=== PATIENT | female | born 1930 | race Caucasian/White ===

== ENCOUNTER 2016-11-24 17:20 | Emergency (ER) | payer MEDICARE ==
--- NOTE | 2016-11-24 17:41 | ER Document Report ---
ED General - General Chief Complaint: Fall Stated Complaint: FALL Time Seen by Provider: 11/24/16 17:29 Mode of Arrival: Medic Information source: Patient, Emergency Med Personnel Notes: 86-year-old female presents from care facility where she was ambulating with no difficulty and then her legs started to shake and she is gradually fell to the ground. Care workers were standing right next to her and were able to grab her before she fell. Patient did not strike herself. There is concerns of weakness by care facility but this was not noted by EMS upon their arrival Patient herself denies any other concerns at all TRAVEL OUTSIDE OF THE [place] IN LAST 30 DAYS: No - HPI Onset: Just prior to arrival Onset/Duration: Sudden Quality of pain: No pain Severity: Mild Pain Level: Denies Associated symptoms: Weakness Exacerbated by: Denies Relieved by: Denies Similar symptoms previously: No Recently seen / treated by doctor: No - Related Data Allergies/Adverse Reactions: Penicillins Allergy (Verified 05/31/14 13:55) Past Medical History - Social History Smoking Status: Never Smoker Cigarette use (# per day): No Chew tobacco use (# tins/day): No Smoking Education Provided: No Family History: Reviewed & Not Pertinent, Other - Unable - Past Medical History Cardiac Medical History: Reports: Hx Hypercholesterolemia - Immunizations Hx Diphtheria, Pertussis, Tetanus Vaccination: Yes Review of Systems - Review of Systems Notes: REVIEW OF SYSTEMS: CONSTITUTIONAL : Denies fever, chills, or sweats. Denies recent illness. EENT: Denies eye, ear, throat, or mouth pain or symptoms. Denies nasal or sinus congestion or discharge. Denies throat, tongue, or mouth swelling or difficulty swallowing. CARDIOVASCULAR: Denies chest pain. Denies palpitations or racing or irregular heart beat. Denies ankle edema. RESPIRATORY: Denies cough, cold, or chest congestion. Denies shortness of breath, difficulty breathing, or wheezing. GASTROINTESTINAL: Denies abdominal pain or distention. Denies nausea, vomiting , or diarrhea. Denies blood in vomitus, stools, or per rectum. Denies black, tarry stools. Denies constipation. GENITOURINARY: Denies difficulty urinating, painful urination, burning, frequency, blood in urine, or discharge. FEMALE GENITOURINARY: Denies vaginal bleeding, heavy or abnormal periods, irregular periods. Denies vaginal discharge or odor. MUSCULOSKELETAL: Denies back or neck pain or stiffness. Denies joint pain or swelling. SKIN: Denies rash, lesions or sores. HEMATOLOGIC : Denies easy bruising or bleeding. LYMPHATIC: Denies swollen, enlarged glands. NEUROLOGICAL: Denies confusion or altered mental status. Denies passing out or loss of consciousness. Denies dizziness or lightheadedness. Denies headache. Denies weakness or paralysis or loss of use of either side. Denies problems with gait or speech. Denies sensory loss, numbness, or tingling. Denies seizures. PSYCHIATRIC: Denies anxiety or stress. Denies depression, suicidal ideation, or homicidal ideation. ALL OTHER SYSTEMS REVIEWED AND NEGATIVE. PHYSICAL EXAMINATION: GENERAL: Well-appearing, well-nourished and in no acute distress. HEAD: Atraumatic, normocephalic. EYES: Pupils equal round and reactive to light, extraocular movements intact, conjunctiva are normal. ENT: Nares patent, oropharynx clear without exudates. Moist mucous membranes. NECK: Normal range of motion, supple without lymphadenopathy LUNGS: Breath sounds clear to auscultation bilaterally and equal. No wheezes rales or rhonchi. HEART: Regular rate and rhythm without murmurs ABDOMEN: Soft, nontender, nondistended abdomen. No guarding, no rebound. No masses appreciated. Female : deferred Musculoskeletal: Normal range of motion, no pitting or edema. No cyanosis. NEUROLOGICAL: Cranial nerves grossly intact. Normal speech, normal gait. Normal sensory, motor exams mild right facial droop PSYCH: Normal mood, normal affect. SKIN: Warm, Dry, normal turgor, no rashes or lesions noted. Dictation was performed using [employer] voice recognition software Physical Exam - Vital signs Vitals: Temp Pulse Resp BP Pulse Ox 97.3 F 67 16 146/68 H 95 11/24/16 17:36 11/24/16 17:36 11/24/16 17:36 11/24/16 17:36 11/24/16 17:36 Course - Re-evaluation Re-evalutation: 11/24/16 17:43 I have very low suspicion for a stroke given patient's presentation. CT of the head has been ordered on the last 11/24/16 18:[address] is consistent with encephalomalacia which is stable. Patient otherwise looks well is in no distress I do not see any new onset neurological deficits, I will give the patient follow-up with neurology but otherwise at this point admission for a stroke or TIA does not appear appropriate as the patient has no symptoms and the facial droop can be chronic in nature After performing a Medical Screening Examination, I estimate there is LOW risk for INTRACRANIAL HEMORRHAGE, ISCHEMIC CVA, MALIGNANT DYSRHYTHMIA, ACUTE CORONARY SYNDROME, MENINGITIS, PULMONARY EMBOLISM, or SEPSIS thus I consider the discharge disposition reasonable. I have reevaluated this patient multiple times and no significant life threatening changes are noted. The patient and I have discussed the diagnosis and risks, and we agree with discharging home with close follow-up with the understanding that symptoms and presentations can change. We also discussed returning to the Emergency Department immediately if new or worsening symptoms occur. We have discussed the symptoms which are most concerning (e.g., changing or worsening pain, weakness, vomiting, fever) that necessitate immediate return. - Vital Signs Vital signs: Temp Pulse Resp BP Pulse Ox 97.3 F 67 16 146/68 H 95 11/24/16 17:36 11/24/16 17:36 11/24/16 17:36 11/24/16 17:36 11/24/16 17:36 - Diagnostic Test Radiology reviewed: Image reviewed, Reports reviewed - chronic changes Discharge - Discharge Clinical Impression: Weakness Condition: Stable Disposition: HOME, SELF-CARE Additional Instructions: Follow up with your physician tomorrow for further care or return to the ED IMMEDIATELY if symptoms worsen or new concerns occur. If you cannot afford to follow up with your primary care physician a list of low cost clinics have been provided at the end of your discharge papers as well. Referrals: MO RIVERO MD [ACTIVE STAFF] - Follow up tomorrow
--- NOTE | 2016-11-24 18:15 | RADIOLOGY REPORT (SQ) ---
EXAM DESCRIPTION: CT HEAD WITHOUT COMPLETED DATE/TIME: 11/24/2016 5:48 pm REASON FOR STUDY: right facial droop COMPARISON: 02/01/2013 TECHNIQUE: Axial images acquired through the brain without intravenous contrast. Images reviewed wi th bone, brain and subdural windows. Images stored on PACS. All CT scanners at this facility use dose modulation, iterative reconstruction, and/or weight based d osing when appropriate to reduce radiation dose to as low as reasonably achievable (ALARA). [facility]: Dose Right [facility]: CareDose [facility]: Dose Right [facility]: Teradose 4D [facility]: Smart [employer] RADIATION DOSE: Up-to-date CT equipment and radiation dose reduction techniques were employed. CTDIv ol: 64.6 mGy. DLP: 2430 mGy-cm. mGy. LIMITATIONS: None. FINDINGS: VENTRICLES: Prominent. CEREBRUM: No masses. No hemorrhage. No midline shift. Re- demonstration of large territory encepha lomalacia involving the left frontal and temporal lobes, not significantly changed in the study inter minal. Less pronounced findings involving the right frontal lobe. Background of periventricular hypoa ttenuation, consistent with chronic microvascular ischemic change. . No evidence for acute infarcti on. CEREBELLUM: No masses. No hemorrhage. No alteration of density. No evidence for acute infarction. EXTRAAXIAL SPACES: Mild age-related involutional change. No fluid collections. No masses. ORBITS AND GLOBE: No intra- or extraconal masses. Normal contour of globe without masses. CALVARIUM: No fracture. PARANASAL SINUSES: No fluid or mucosal thickening. SOFT TISSUES: No mass or hematoma. OTHER: No other significant finding. IMPRESSION: Stable multifocal encephalomalacia superimposed upon a background of chronic microvascul ar ischemic change. No evidence of acute infarct, mass, or hemorrhage. TECHNICAL DOCUMENTATION: JOB ID: [id number] Quality ID # [id number]: Final reports with documentation of one or more dose reduction techniques (e.g., Au tomated exposure control, adjustment of the mA and/or kV according to patient size, use of iterative reconstruction technique) 2010 [employer] [place]- All Rights Reserved
[2016-11-24] MEDS ORDERED: ASPIRIN 325 MG TABLET PO ONE (18:18)
[2016-11-24 19:46] VITALS: BP 112/79
== END 2016-11-24 19:45 | disposition home or self-care (01) ==
LOC: ER 17:20
DX: R53.1 Weakness (principal); W19.XXXA Unspecified fall, initial encounter
CPT/HCPCS: 70450; 99284

== ENCOUNTER 2017-01-13 21:30 | Emergency (ER) | payer MEDICARE ==
[2017-01-13] MEDS ORDERED: ACETAMINOPHEN 325 MG TABLET PO ONE (21:45)
--- NOTE | 2017-01-13 22:10 | ER Document Report ---
ED General - General Chief Complaint: Fall Injury Stated Complaint: FALL,HEAD INJURY Mode of Arrival: Medic Information source: Patient TRAVEL OUTSIDE OF THE [place] IN LAST 30 DAYS: No - HPI Patient complains to provider of: accidental fall Notes: Patient is 86-year-old white female with history of dementia comes from local [facility] with report that she was standing at the nurses station when she lost her footing and fell over striking her head. EMS found the patient to be alert and interactive. The patient has chronic dementia and does not know the year but does note that she is in the hospital and knows her name. Patient has no recollection of the event, but this is chronic. She initially denies any pain anywhere, later acknowledging that she is got headache and some neck pain. No chest pain or abdominal pain or difficulty breathing. No vomiting. - Related Data Allergies/Adverse Reactions: Penicillins Allergy (Verified 05/31/14 13:55) Past Medical History - General Information source: Patient, Emergency Med Personnel, Outside Facility Records Cannot obtain history due to: Dementia - Social History Smoking Status: Never Smoker Frequency of alcohol use: None Drug Abuse: None Lives with: [facility] Family History: Reviewed & Not Pertinent, Other - Unable - Past Medical History Cardiac Medical History: Reports: Hx Hypercholesterolemia Pulmonary Medical History: Reports: Hx COPD GI Medical History: Reports: Hx Gastroesophageal Reflux Disease - Immunizations Hx Diphtheria, Pertussis, Tetanus Vaccination: Yes Review of Systems - Review of Systems Notes: REVIEW OF SYSTEMS: CONSTITUTIONAL : Denies fever, chills, or sweats. Denies recent illness. EENT: Denies eye, ear, throat, or mouth pain or symptoms. Denies nasal or sinus congestion or discharge. Denies throat, tongue, or mouth swelling or difficulty swallowing. CARDIOVASCULAR: Denies chest pain. Denies palpitations or racing or irregular heart beat. Denies ankle edema. RESPIRATORY: Denies cough, cold, or chest congestion. Denies shortness of breath, difficulty breathing, or wheezing. GASTROINTESTINAL: Denies abdominal pain or distention. Denies nausea, vomiting , or diarrhea. Denies blood in vomitus, stools, or per rectum. Denies black, tarry stools. Denies constipation. GENITOURINARY: Denies difficulty urinating, painful urination, burning, frequency, blood in urine, or discharge. FEMALE GENITOURINARY: Denies vaginal bleeding, heavy or abnormal periods, irregular periods. Denies vaginal discharge or odor. MUSCULOSKELETAL: Denies back pain or stiffness. Denies joint pain or swelling. SKIN: Denies rash, lesions or sores. HEMATOLOGIC : Denies easy bruising or bleeding. LYMPHATIC: Denies swollen, enlarged glands. NEUROLOGICAL: Denies new confusion or altered mental status. Denies passing out or loss of consciousness. Denies dizziness or lightheadedness. Denies weakness or paralysis or loss of use of either side. Denies problems with gait or speech. Denies sensory loss, numbness, or tingling. Denies seizures. PSYCHIATRIC: Denies anxiety or stress. Denies depression, suicidal ideation, or homicidal ideation. ALL OTHER SYSTEMS REVIEWED AND NEGATIVE. Dictation was performed using [email or web address] voice recognition software Physical Exam - Vital signs Vitals: Temp Pulse Resp BP Pulse Ox 98.2 F 84 22 H 132/68 H 98 01/13/17 21:40 01/13/17 21:40 01/13/17 21:40 01/13/17 21:40 01/13/17 21:40 - Notes Notes: PHYSICAL EXAMINATION: GENERAL: Well-appearing, well-nourished and in no acute distress. HEAD: Right occipital contusion. No bony deformity or crepitance.. EYES: Pupils equal round and reactive to light, extraocular movements intact, conjunctiva are normal. ENT: Nares patent, oropharynx clear without exudates. Moist mucous membranes. NECK: Pain posteriorly along C3 and 4. No bony deformity or crepitance. Trachea is midline. LUNGS: Breath sounds clear to auscultation bilaterally and equal. No wheezes rales or rhonchi. HEART: Regular rate and rhythm without murmurs ABDOMEN: Soft, nontender, nondistended abdomen. No guarding, no rebound. No masses appreciated. Female : deferred Musculoskeletal: Normal range of motion, no pitting or edema. No cyanosis. NEUROLOGICAL: Cranial nerves grossly intact. Normal speech. Normal sensory, motor exams. Patient is alert to person and place this is chronic. Consistent with her previous history of dementia. PSYCH: Normal mood, normal affect. SKIN: Warm, Dry, normal turgor, no rashes or lesions noted. Course - Re-evaluation Re-evalutation: 01/13/17 22:14 Patient given Tylenol for pain. Blood sugar was 151. 01/13/17 22:15 01/13/17 23:37 CT scan of the head and neck were both negative. No evidence for acute intracranial process or fracture. Patient's dementia is unchanged and her neurologic exam shows no unilateral findings. There is no cardiac ectopy identified. No hypotension. No suggestion for syncope as an etiology. - Vital Signs Vital signs: Temp Pulse Resp BP Pulse Ox 98.2 F 84 22 H 132/68 H 98 01/13/17 21:40 01/13/17 21:40 01/13/17 21:40 01/13/17 21:40 01/13/17 21:40 - Laboratory Laboratory results interpreted by ut: 01/13/17 21:48 POC Glucose 151 H - EKG Interpretation by Nd EKG shows normal: Sinus rhythm Additional EKG results interpreted by ut: 01/13/17 22:15 EKG as interpreted by ut showed normal sinus rhythm heart rate of 70 with right bundle branch block. There is no gross evidence for acute MS or ischemia identified. There is no change from previous EKG reviewed from 10/01/14. Discharge - Discharge Clinical Impression: Accidental fall Qualifiers: Encounter type: initial encounter Qualified Code(s): W19.XXXA - Unspecified fall, initial encounter Head injury Qualifiers: Encounter type: initial encounter Qualified Code(s): S09.90XA - Unspecified injury of head, initial encounter Neck strain Qualifiers: Encounter type: initial encounter Qualified Code(s): S16.1XXA - Strain of muscle, fascia and tendon at neck level, initial encounter Dementia Qualifiers: Dementia type: Alzheimer's disease Alzheimer's disease onset: late-onset Dementia behavioral disturbance: without behavioral disturbance Qualified Code(s ): G30.1 - Alzheimer's disease with late onset; F02.80 - Dementia in other diseases classified elsewhere without behavioral disturbance Condition: Stable Disposition: HOME, SELF-CARE Instructions: Head Injury Precautions ([facility]), Neck Injury (Cervical Strain) ([facility] ) Additional Instructions: Take precautions to help prevent falls. Walk with assistance.
--- NOTE | 2017-01-13 22:34 | RADIOLOGY REPORT (SQ) ---
EXAM DESCRIPTION: CT HEAD WITHOUT COMPLETED DATE/TIME: 01/13/2017 10:18 pm REASON FOR STUDY: fall with head injury COMPARISON: 11/24/2016 TECHNIQUE: Axial images acquired through the brain without intravenous contrast. Images reviewed wi th bone, brain and subdural windows. Images stored on PACS. All CT scanners at this facility use dose modulation, iterative reconstruction, and/or weight based d osing when appropriate to reduce radiation dose to as low as reasonably achievable (ALARA). [facility]: Dose Right [facility]: CareDose [facility]: Dose Right [facility]: Teradose 4D [facility]: Smart [employer] RADIATION DOSE: Up-to-date CT equipment and radiation dose reduction techniques were employed. CTDIv ol: 49.0 mGy. DLP: 783 mGy-cm.mGy. LIMITATIONS: None. FINDINGS: VENTRICLES: Prominent. CEREBRUM: No masses. No hemorrhage. No midline shift. Areas of low density in the white matter due to chronic ischemic change. CEREBELLUM: No masses. No hemorrhage. No alteration of density. No evidence for acute infarction. EXTRAAXIAL SPACES: Age-related involutional change. No fluid collections. No masses. ORBITS AND GLOBE: No intra- or extraconal masses. Normal contour of globe without masses. CALVARIUM: No fracture. PARANASAL SINUSES: No fluid or mucosal thickening. SOFT TISSUES: No mass or hematoma. OTHER: No other significant finding. IMPRESSION: No hemorrhage. No midline shift. Areas of low density in the white matter due to chron ic ischemic change. EVIDENCE OF ACUTE STROKE: NO. TECHNICAL DOCUMENTATION: JOB ID: [id number] Quality ID # [id number]: Final reports with documentation of one or more dose reduction techniques (e.g., Au tomated exposure control, adjustment of the mA and/or kV according to patient size, use of iterative reconstruction technique) 2010 [employer]- All Rights Reserved
--- NOTE | 2017-01-13 22:53 | RADIOLOGY REPORT (SQ) ---
EXAM DESCRIPTION: CT CERVICAL SPINE WITHOUT COMPLETED DATE/TIME: 01/13/2017 10:37 pm REASON FOR STUDY: fall with neck injury COMPARISON: None. TECHNIQUE: Axial images acquired through the cervical spine without intravenous contrast. Images re viewed with lung, soft tissue and bone windows. Reconstructed coronal and sagittal MPR images review ed. Images stored on PACS. All CT scanners at this facility use dose modulation, iterative reconstruction, and/or weight based d osing when appropriate to reduce radiation dose to as low as reasonably achievable (ALARA). [facility]: Dose Right [facility]: CareDose [facility]: Dose Right [facility]: Teradose 4D [facility]: Smart [employer] RADIATION DOSE: Up-to-date CT equipment and radiation dose reduction techniques were employed. CTDIv ol: 15.7 mGy. DLP: 335 mGy-cm. mGy. LIMITATIONS: None. FINDINGS: ALIGNMENT: Anatomic. MINERALIZATION: Normal. VERTEBRAL BODIES: No fractures or dislocation. DISCS: Multilevel disc space narrowing with osteophytes. FACETS, LATERAL MASSES, POSTERIOR ELEMENTS: Facet arthropathy. No fractures. No dislocation. No ac napaimute findings. HARDWARE: None in the spine. VISUALIZED RIBS: No fractures. LUNG APICES AND SOFT TISSUES: No significant or acute findings. OTHER: No other significant finding. IMPRESSION: CHRONIC DEGENERATIVE CHANGES. NO ACUTE FINDINGS. TECHNICAL DOCUMENTATION: JOB ID: [id number] Quality ID # [id number]: Final reports with documentation of one or more dose reduction techniques (e.g., Au tomated exposure control, adjustment of the mA and/or kV according to patient size, use of iterative reconstruction technique) 2010 [employer]- All Rights Reserved
[2017-01-14 01:19] VITALS: BP 122/60
--- NOTE | 2017-01-14 08:07 | EKG REPORT ---
SEVERITY:- ABNORMAL ECG - SINUS RHYTHM RIGHT BUNDLE BRANCH BLOCK PROBABLE INFERIOR INFARCT, AGE INDETERMINATE : Confirmed by: Clari Walker MD 14-Jan-2017 08:06:38
== END 2017-01-14 02:11 | disposition home or self-care (01) ==
LOC: ER 21:30
DX: S09.90XA Unspecified injury of head, initial encounter (principal); S16.1XXA Strain of muscle, fascia and tendon at neck level, initial encounter; F03.90 Unspecified dementia, unspecified severity, without behavioral disturbance, psychotic disturbance, mood disturbance, and anxiety; W01.198A Fall on same level from slipping, tripping and stumbling with subsequent striking against other object, initial encounter; Y92.128 Other place in nursing home as the place of occurrence of the external cause; Z88.0 Allergy status to penicillin; E78.00 Pure hypercholesterolemia, unspecified; J44.9 Chronic obstructive pulmonary disease, unspecified; K21.9 Gastro-esophageal reflux disease without esophagitis
CPT/HCPCS: 93005; 99284; 82962; 70450; 72125; 93010; A9270

== ENCOUNTER 2017-06-23 20:17 | Emergency (ER) | payer MEDICARE ==
[2017-06-23 21:12] LABS: ABSOLUTE BASOPHILS # (AUTO) 0.1 10^3/uL (0.0-0.2); ABSOLUTE EOSINOPHILS # (AUTO) 0.2 10^3/uL (0.0-0.6); ABSOLUTE LYMPHOCYTES (AUTO) 1.2 10^3/uL (0.5-4.7); ABSOLUTE MONOCYTES (AUTO) 0.8 10^3/uL (0.1-1.4); ABSOLUTE NEUT (AUTO) 6.4 10^3/uL (1.7-8.2); BASOPHILS % (AUTO) 1.3 % (0-2); EOSINOPHILS % (AUTO) 2.2 % (0-6); HEMATOCRIT 39.9 % (36.0-47.0); HEMOGLOBIN 13.1 g/dL (12.0-15.5); LYMPHOCYTES % (AUTO) 13.8 % (13-45); MEAN CORPUSCULAR HEMOGLOBIN 28.2 pg (27.0-33.4); MEAN CORPUSCULAR HGB CONC 32.8 g/dL (32.0-36.0); MEAN CORPUSCULAR VOLUME 86 fl (80-97); MONOCYTES % (AUTO) 9.5 % (3-13); PLATELET COUNT 238 10^3/uL (150-450); RED BLOOD COUNT 4.63 10^6/uL (3.72-5.28); SEGMENTED NEUTROPHILS % (AUTO) 73.2 % (42-78); TOTAL CELLS COUNTED % (AUTO) 100 %; WHITE BLOOD COUNT 8.7 10^3/uL (4.0-10.5)
[2017-06-23 21:24] LABS: ANION GAP 9 (5-19); BLOOD UREA NITROGEN 30 mg/dL (7-20); CALCIUM 9.1 mg/dL (8.4-10.2); CARBON DIOXIDE 27 mmol/L (22-30); CHLORIDE 106 mmol/L (98-107); GLUCOSE 146 mg/dL (75-110); POTASSIUM 4.3 mmol/L (3.6-5.0); SODIUM 141.9 mmol/L (137-145)
--- NOTE | 2017-06-23 23:13 | EKG REPORT ---
SEVERITY:- ABNORMAL ECG - SINUS BRADYCARDIA RIGHT BUNDLE BRANCH BLOCK PROBABLE INFERIOR INFARCT, AGE INDETERMINATE : Confirmed by: Scott Martinez MD 23-Jun-2017 23:13:23
--- NOTE | 2017-06-23 23:21 | ER Document Report ---
ED General - General Chief Complaint: Fall Stated Complaint: FALL Time Seen by Provider: 06/23/17 20:25 Mode of Arrival: Medic Information source: Patient, Transfer Record, Emergency Med Personnel, [facility] Records TRAVEL OUTSIDE OF THE [place] IN LAST 30 DAYS: No - HPI Patient complains to provider of: fall Onset: Other - unknown exactly when it occurred Similar symptoms previously: Yes Notes: Found on floor at [place]. Emesis times one enroute to ED. - Related Data Allergies/Adverse Reactions: Penicillins Allergy (Verified 05/31/14 13:55) Past Medical History - General Information source: Patient, Transfer Record, [facility] Records - Social History Smoking Status: Never Smoker Frequency of alcohol use: None Drug Abuse: None Lives with: [facility] Family History: Reviewed & Not Pertinent, Other - Unable Patient has suicidal ideation: No Patient has homicidal ideation: No - Past Medical History Cardiac Medical History: Reports: Hx Hypercholesterolemia Pulmonary Medical History: Reports: Hx COPD Neurological Medical History: Reports: Hx Cerebrovascular Accident Endocrine Medical History: Reports: None Renal/ Medical History: Reports: None. Denies: Hx Peritoneal Dialysis GI Medical History: Reports: Hx Gastroesophageal Reflux Disease Musculoskeltal Medical History: Reports None Psychiatric Medical History: Reports: Hx Dementia Past Surgical History: Reports: None - Immunizations Hx Diphtheria, Pertussis, Tetanus Vaccination: Yes Review of Systems - Review of Systems Constitutional: No symptoms reported EENT: No symptoms reported Cardiovascular: No symptoms reported Respiratory: No symptoms reported Gastrointestinal: No symptoms reported Genitourinary: No symptoms reported Female Genitourinary: No symptoms reported Musculoskeletal: No symptoms reported Skin: No symptoms reported Hematologic/Lymphatic: No symptoms reported Neurological/Psychological: Dementia Physical Exam - Vital signs Vitals: Resp Pulse Ox 20 95 06/23/17 20:27 06/23/17 20:27 - Notes Notes: PHYSICAL EXAMINATION: GENERAL: Elderly female lying comfortably in bed in no acute distress. HEAD: Atraumatic, normocephalic. EYES: Pupils equal round and reactive to light, extraocular movements intact, conjunctiva are normal. ENT: Nares patent, oropharynx clear without exudates. Moist mucous membranes. NECK: Normal range of motion, supple without lymphadenopathy LUNGS: Breath sounds clear to auscultation bilaterally and equal. No wheezes rales or rhonchi. HEART: Regular rate and rhythm ABDOMEN: Soft, nontender, nondistended abdomen. No guarding, no rebound. No masses appreciated. Female : deferred Musculoskeletal: Normal range of motion, no pitting or edema. No cyanosis. NEUROLOGICAL: Cranial nerves grossly intact. Normal speech. Alert to self and place. Normal sensory, motor exams. Mild right facial droop which was noted on previous physical exams PSYCH: Normal mood, normal affect. SKIN: Warm, Dry, normal turgor, no rashes or lesions noted. Course - Re-evaluation Re-evalutation: 06/23/17 23:26 Labs- All tests 24 hr 06/23/17 06/23/17 20:55 20:55 WBC 8.7 RBC 4.63 Hgb 13.1 Hct 39.9 MCV 86 MCH 28.2 MCHC 32.8 RDW 14.0 Plt Count 238 Seg Neutrophils % 73.2 Lymphocytes % 13.8 Monocytes % 9.5 Eosinophils % 2.2 Basophils % 1.3 Absolute Neutrophils 6.4 Absolute Lymphocytes 1.2 Absolute Monocytes 0.8 Absolute Eosinophils 0.2 Absolute Basophils 0.1 Sodium 141.9 Potassium 4.3 Chloride 106 Carbon Dioxide 27 Anion Gap 9 BUN 30 H Creatinine 1.00 Est GFR ( Amer) > 60 Est GFR (Non-Af Amer) 52 L Glucose 146 H Calcium 9.1 - Vital Signs Vital signs: Temp Pulse Resp BP Pulse Ox 97.5 F 17 132/82 H 96 06/23/17 20:28 06/23/17 23:05 06/23/17 22:01 06/23/17 23:05 - Laboratory Result Diagrams: 06/23/17 20:55 06/23/17 20:55 Laboratory results interpreted by me: 06/23/17 20:55 BUN 30 H Est GFR (Non-Af Amer) 52 L Glucose 146 H - Diagnostic Test Radiology reviewed: Image reviewed, Reports reviewed - EKG Interpretation by Me EKG shows normal: Sinus rhythm Rate: Bradycardia - 59 When compared to previous EKG there are: No significant change Discharge - Discharge Clinical Impression: Fall, Dementia Condition: Stable Disposition: HOME-SNF (ED ONLY) Additional Instructions: Follow up with your physician tomorrow for further care or return to the ED IMMEDIATELY if symptoms worsen or new concerns occur.
--- NOTE | 2017-06-24 00:34 | RADIOLOGY REPORT (SQ) ---
EXAM DESCRIPTION: CT HEAD WITHOUT CLINICAL HISTORY: 87 years Female, fall COMPARISON: None. TECHNIQUE: No contrast. This exam was performed according to our departmental dose-optimization program, which includes automated exposure control, adjustment of the mA and/or kV according to patient size and/or use of iterative reconstruction technique. FINDINGS: Moderate extensive left frontoparietal-temporal encephalomalacia, small multifocal right frontal encephalomalacia consistent with prior left MCA/ELEONORA and right watershed infarcts, moderate white matter microangiopathy. Atherosclerosis. No hemorrhage. No mass, mass effect, or midline shift. Extra-axial structures appear otherwise grossly intact. Impression: No acute findings. Prior extensive infarcts.
[2017-06-24 01:32] VITALS: BP 130/67
== END 2017-06-24 01:32 ==
LOC: ER 20:17
DX: F03.90 Unspecified dementia, unspecified severity, without behavioral disturbance, psychotic disturbance, mood disturbance, and anxiety (principal); R11.10 Vomiting, unspecified; W19.XXXA Unspecified fall, initial encounter; Y92.129 Unspecified place in nursing home as the place of occurrence of the external cause; Z88.0 Allergy status to penicillin; E78.00 Pure hypercholesterolemia, unspecified; Z86.73 Personal history of transient ischemic attack (TIA), and cerebral infarction without residual deficits; J44.9 Chronic obstructive pulmonary disease, unspecified
CPT/HCPCS: 36415; 70450; 80048; 85025; 93005; 93010; 99285

== ENCOUNTER 2017-08-22 08:56 | Emergency (ER) | payer MEDICARE ==
[2017-08-22 09:46] LABS: ABSOLUTE EOSINOPHILS # (AUTO) 0.2 10^3/uL (0.0-0.6); ABSOLUTE LYMPHOCYTES (AUTO) 1.3 10^3/uL (0.5-4.7); ABSOLUTE MONOCYTES (AUTO) 0.9 10^3/uL (0.1-1.4); ABSOLUTE NEUT (AUTO) 5.9 10^3/uL (1.7-8.2); BASOPHILS % (AUTO) 0.6 % (0-2); EOSINOPHILS % (AUTO) 1.9 % (0-6); HEMATOCRIT 42.1 % (36.0-47.0); HEMOGLOBIN 14.1 g/dL (12.0-15.5); LYMPHOCYTES % (AUTO) 15.5 % (13-45); MEAN CORPUSCULAR HEMOGLOBIN 28.7 pg (27.0-33.4); MEAN CORPUSCULAR HGB CONC 33.4 g/dL (32.0-36.0); MEAN CORPUSCULAR VOLUME 86 fl (80-97); PLATELET COUNT 252 10^3/uL (150-450); RED BLOOD COUNT 4.91 10^6/uL (3.72-5.28); RED CELL DISTRIBUTION WIDTH 13.5 % (11.5-14.0); TOTAL CELLS COUNTED % (AUTO) 100 %; WHITE BLOOD COUNT 8.3 10^3/uL (4.0-10.5)
[2017-08-22 09:57] LABS: ALANINE AMINOTRANSFERASE 18 U/L (9-52); ALBUMIN 3.8 g/dL (3.5-5.0); ALKALINE PHOSPHATASE 93 U/L (38-126); ANION GAP 17 (5-19); ASPARTATE AMINO TRANSFERASE 18 U/L (14-36); BILIRUBIN,DIRECT 0.3 mg/dL (0.0-0.4); BILIRUBIN,TOTAL 0.7 mg/dL (0.2-1.3); BLOOD UREA NITROGEN 29 mg/dL (7-20); CALCIUM 9.4 mg/dL (8.4-10.2); CARBON DIOXIDE 26 mmol/L (22-30); CHLORIDE 107 mmol/L (98-107); GLUCOSE 101 mg/dL (75-110); POTASSIUM 4.5 mmol/L (3.6-5.0); SODIUM 149.8 mmol/L (137-145); TOTAL PROTEIN 6.3 g/dL (6.3-8.2)
[2017-08-22 10:05] LABS: APPEARANCE,URINE SLIGHTLY-CLOUDY; BILIRUBIN,URINE NEGATIVE (NEGATIVE); COLOR,URINE YELLOW; GLUCOSE, URINE NEGATIVE (NEGATIVE); KETONES,URINE 20 mg/dL (NEGATIVE); LEUKOCYTE ESTERASE,URINE TRACE (NEGATIVE); NITRITE,URINE POSITIVE (NEGATIVE); PROTEIN,URINE NEGATIVE (NEGATIVE); URINE SPECIFIC GRAVITY 1.021; UROBILINOGEN,URINE NEGATIVE mg/dL (<2.0)
[2017-08-22] MEDS ORDERED: NORMAL SALINE 1000 ML 1,000 ML IV ONE (10:05)
[2017-08-22 10:06] LABS: CREATINE KINASE < 20 U/L (30-135)
[2017-08-22 10:11] LABS: CREATINE KINASE MB < 0.22 ng/mL (<4.55); TROPONIN I < 0.012 ng/mL
--- NOTE | 2017-08-22 10:56 | RADIOLOGY REPORT (SQ) ---
EXAM DESCRIPTION: CHEST SINGLE VIEW COMPLETED DATE/TIME: 08/22/2017 10:37 am REASON FOR STUDY: syncope COMPARISON: 08/22/2017 EXAM PARAMETERS: NUMBER OF VIEWS: One view. TECHNIQUE: Single frontal radiographic view of the chest acquired. RADIATION DOSE: NA LIMITATIONS: None. FINDINGS: LUNGS AND PLEURA: No opacities, masses or pneumothorax. No pleural effusion. MEDIASTINUM AND HILAR STRUCTURES: No masses. Contour normal. HEART AND VASCULAR STRUCTURES: Heart normal in size. Normal vasculature. BONES: No acute findings. HARDWARE: None in the chest. OTHER: No other significant finding. IMPRESSION: NO ACUTE RADIOGRAPHIC FINDING IN THE CHEST. TECHNICAL DOCUMENTATION: JOB ID: [id number] [employer]- All Rights Reserved Reading location - IP/workstation name: [email or web address]
[2017-08-22] MEDS ORDERED: CEFTRIAXONE 1 GM/D5W RTU 1 GM/50 ML RTUPB IV ONE (11:38)
[2017-08-22] MEDS ORDERED: NORMAL SALINE 500 ML IV ONE (11:53)
[2017-08-22] MEDS ORDERED: CEFTRIAXONE SODIUM 1,000 MG in DEXTROSE 5%-WATER 50 ML IV ONE (12:30)
--- NOTE | 2017-08-22 12:51 | ER Document Report ---
ED General - General Chief Complaint: Syncope Stated Complaint: POSSIBLE SYNCOPE Time Seen by Provider: 08/22/17 09:27 TRAVEL OUTSIDE OF THE [place] IN LAST 30 DAYS: No - HPI Patient complains to provider of: Syncope Notes: Patient coming in from local senior care facility for evaluation of syncopal episode. According to the nurse report was that the patient was standing and ease down to the ground for possible syncopal episode. Patient has a history of dementia. Otherwise patient is resting comfortably sleeping easily arousable upon my evaluation. Patient has no complaints however slightly confused. Much of the HPI is unobtainable because of her dementia. No family at bedside. - Related Data Allergies/Adverse Reactions: Penicillins Allergy (Verified 05/31/14 13:55) Past Medical History - Social History Smoking Status: Unknown if Ever Smoked Chew tobacco use (# tins/day): No Frequency of alcohol use: None Drug Abuse: None Family History: Reviewed & Not Pertinent, Other - Unable Patient has suicidal ideation: No Patient has homicidal ideation: No - Past Medical History Cardiac Medical History: Reports: Hx Hypercholesterolemia Pulmonary Medical History: Reports: Hx COPD Neurological Medical History: Reports: Hx Cerebrovascular Accident Renal/ Medical History: Denies: Hx Peritoneal Dialysis GI Medical History: Reports: Hx Gastroesophageal Reflux Disease Psychiatric Medical History: Reports: Hx Dementia - Immunizations Hx Diphtheria, Pertussis, Tetanus Vaccination: Yes Review of Systems - Review of Systems -: Yes ROS unobtainable due to patient's medical condition - Demented dementia Physical Exam - Vital signs Vitals: Temp Pulse Resp BP Pulse Ox 97.4 F 63 16 145/53 H 97 08/22/17 09:09 08/22/17 09:09 08/22/17 09:09 08/22/17 09:09 08/22/17 09:09 Interpretation: Normal - General General appearance: Appears well, Alert - HEENT Head: Normocephalic, Atraumatic Eyes: Normal Pupils: PERRL - Respiratory Respiratory status: No respiratory distress Chest status: Nontender Breath sounds: Normal Chest palpation: Normal - Cardiovascular Rhythm: Regular Heart sounds: Normal auscultation Murmur: No - Abdominal Inspection: Normal Distension: No distension Bowel sounds: Normal Tenderness: Nontender Organomegaly: No organomegaly - Back Back: Normal, Nontender - Extremities General upper extremity: Normal inspection, Nontender, Normal color, Normal temperature General lower extremity: Normal inspection, Nontender, Normal color, Normal temperature - Neurological Neuro grossly intact: Yes Cognition: Normal, Confused Luke Coma Scale Eye Opening: Spontaneous Teague Coma Scale Verbal: Confused Teague Coma Scale Motor: Obeys Commands Luke Coma Scale Total: 14 Speech: Normal Motor strength normal: LUE, RUE, LLE, RLE Sensory: Normal - Psychological Associated symptoms: Confused - Skin Skin Temperature: Warm Skin Moisture: Dry Skin Color: Normal Course - Re-evaluation Re-evalutation: 08/22/17 18:18 Patient's laboratory studies showed elevation are also positive. Patient has a slight urinary tract infection. Patient was given IV fluids here no signs of hypotension. See any other critical etiology on her evaluation. Patient will be discharged back to senior care with antibiotics. Patient was encouraged to have fluids and stay hydrated. Family at bedside regarding discharge agrees with this plan. - Vital Signs Vital signs: Temp Pulse Resp BP Pulse Ox 97.3 F 63 14 152/60 H 96 08/22/17 13:51 08/22/17 09:51 08/22/17 13:56 08/22/17 14:00 08/22/17 13:56 - Laboratory Result Diagrams: 08/22/17 09:15 08/22/17 09:15 Laboratory results interpreted by me: 08/22/17 08/22/17 09:15 09:41 Sodium 149.8 H BUN 29 H Est GFR ( Amer) 55 L Est GFR (Non-Af Amer) 45 L Creatine Kinase < 20 L Urine Ketones 20 H Urine Blood SMALL H Urine Nitrite POSITIVE H Ur Leukocyte Esterase TRACE H Discharge - Discharge Clinical Impression: Orthostatic syncope, Hypernatremia UTI (urinary tract infection) Qualifiers: Urinary tract infection type: site unspecified Hematuria presence: without hematuria Qualified Code(s): N39.0 - Urinary tract infection, site not specified Condition: Good Disposition: HOME, SELF-CARE Instructions: Dehydration ([facility]), Orthostatic Hypotension ([facility]), Urinary Tract Infection ([facility]) Additional Instructions: Patient's workup today shows signs of dehydration with hemoconcentration. Patient's orthostatics were also positive more likely etiology for the patient' s syncopal episode. Patient's urinalysis also shows nitrate positive with bacteria consistent with a urinary tract infection. No signs of David or significant infection is that patient has an otherwise normal looking white count. We did hydrate the patient here in the ER patient also received a dose of Rocephin for antibiotic coverage. Will discharge patient home on cipro Patient should continue antibiotics as prescribed urine culture will send patient to follow-up PCP in the next 2 3 days. Patient should encouraged to drink fluids to stay well-hydrated Prescriptions: Ciprofloxacin HCl [Cipro 500 mg Tablet] 500 mg PO BID #14 tablet Referrals: MARIA DE JESUS LOJA PA-C [Primary Care Provider] - Follow up as needed
[2017-08-22] MEDS ORDERED: CIPROFLOXACIN HCL 500 MG TABLET PO ONE (13:09)
[2017-08-22 14:09] VITALS: BP 152/60
--- NOTE | 2017-08-22 23:41 | EKG REPORT ---
SEVERITY:- ABNORMAL ECG - SINUS RHYTHM RIGHT BUNDLE BRANCH BLOCK : Confirmed by: Dakota Villarreal 22-Aug-2017 23:40:34
== END 2017-08-22 14:09 | disposition home or self-care (01) ==
LOC: ER 08:56
DX: E87.0 Hyperosmolality and hypernatremia (principal); I95.1 Orthostatic hypotension; N39.0 Urinary tract infection, site not specified; E78.00 Pure hypercholesterolemia, unspecified; J44.9 Chronic obstructive pulmonary disease, unspecified; Z88.0 Allergy status to penicillin
CPT/HCPCS: 93005; 99284; 96360; 51701; 36415; 82553; 82550; 85025; 80053; 81001; 84484; 71045; 93010; A9270; J7030

== ENCOUNTER 2017-10-19 12:42 | Emergency (ER) | payer MEDICARE ==
--- NOTE | 2017-10-19 13:05 | ER Document Report ---
ED General <OMAIRA WHITLOCK - Last Filed: 10/19/17 15:46> - General Mode of Arrival: Medic Information source: Patient, Emergency Med Personnel, [facility] Records TRAVEL OUTSIDE OF THE [place] IN LAST 30 DAYS: No <KRISTEN WAGONER - Last Filed: 10/19/17 15:48> - General Chief Complaint: General Weakness Stated Complaint: WEAKNESS Time Seen by Provider: 10/19/17 12:51 Notes: Patient is an 87 year old female with dementia, COPD, hypothyroidism, GERD presents to the emergency department from [facility] due to a fall. According to nurse, staff at [facility] states the patient has been weak lately further stating the patient was found in a wheel chair and stated she fell. At bedside patient denies any pain. (KRISTEN WAGONER) - Related Data Allergies/Adverse Reactions: Penicillins Allergy (Verified 05/31/14 13:55) Past Medical History - General Information source: Patient, Emergency Med Personnel, [facility] Records - Social History Smoking Status: Never Smoker Cigarette use (# per day): No Chew tobacco use (# tins/day): No Smoking Education Provided: No Frequency of alcohol use: None Family History: Reviewed & Not Pertinent, Other - Unable - Past Medical History Cardiac Medical History: Reports: Hx Hypercholesterolemia Pulmonary Medical History: Reports: Hx COPD Neurological Medical History: Reports: Hx Cerebrovascular Accident Endocrine Medical History: Reports: Hx Hypothyroidism GI Medical History: Reports: Hx Gastroesophageal Reflux Disease Psychiatric Medical History: Reports: Hx Dementia - Immunizations Hx Diphtheria, Pertussis, Tetanus Vaccination: Yes <KRISTEN WAGONER - Last Filed: 10/19/17 15:48> Review of Systems - Review of Systems Constitutional: No symptoms reported EENT: No symptoms reported Cardiovascular: No symptoms reported Respiratory: No symptoms reported Gastrointestinal: No symptoms reported Genitourinary: No symptoms reported Female Genitourinary: No symptoms reported Musculoskeletal: See HPI Skin: No symptoms reported Hematologic/Lymphatic: No symptoms reported Neurological/Psychological: See HPI, Weakness -: Yes All other systems reviewed and negative <KRISTEN WAGONER - Last Filed: 10/19/17 15:48> Physical Exam - General General appearance: Appears well, Alert In distress: None - HEENT Head: Normocephalic, Atraumatic Eyes: Normal Conjunctiva: Normal Extraocular movements intact: Yes Pupils: PERRL Neck: Normal - Respiratory Respiratory status: No respiratory distress Chest status: Nontender Breath sounds: Normal Chest palpation: Normal - Cardiovascular Rhythm: Regular Heart sounds: Normal auscultation Murmur: No Friction rub: No Gallop: None auscultated - Abdominal Inspection: Normal Distension: No distension Bowel sounds: Normal Tenderness: Nontender Organomegaly: No organomegaly - Back Back: Normal - Extremities General upper extremity: Normal inspection, Normal ROM General lower extremity: Normal inspection, Normal ROM - Neurological Neuro grossly intact: No - Demented at baseline Orientation: Disoriented to time - Psychological Associated symptoms: Normal affect, Normal mood - Skin Skin Temperature: Warm Skin Moisture: Dry Skin Color: Normal <KRISTEN WAGONER - Last Filed: 10/19/17 15:48> - Vital signs Vitals: Temp 97.8 F 10/19/17 12:47 Course - Laboratory Result Diagrams: 10/19/17 13:32 10/19/17 13:32 - EKG Interpretation by Tn EKG shows normal: Sinus rhythm, [place], Intervals, QRS Complexes, ST-T Waves Rate: Normal - 56 Rhythm: NSR [place]/QRS: RBBB When compared to previous EKG there are: No significant change <OMAIRA WHITLOCK - Last Filed: 10/19/17 15:46> - Laboratory Result Diagrams: 10/19/17 13:32 10/19/17 13:32 <KIRSTEN WAGONER - Last Filed: 10/19/17 15:48> - Vital Signs Vital signs: Temp Pulse Resp BP Pulse Ox 97.8 F 10/19/17 12:47 - Laboratory Laboratory results interpreted by il: 10/19/17 10/19/17 13:32 14:48 Est GFR (Non-Af Amer) 57 L Creatine Kinase < 20 L Total Protein 5.4 L Albumin 3.4 L Urine Nitrite POSITIVE H Discharge <OMAIRA WHITLOCK - Last Filed: 10/19/17 15:46> <KRISTEN WAGONER - Last Filed: 10/19/17 15:48> - Discharge Clinical Impression: Generalized weakness Condition: Stable Disposition: HOME, SELF-CARE Additional Instructions: Weakness We did not find a definite cause for your weakness. This may require further medical tests. Weakness can be caused by infection, physical exhaustion , rapid weight loss, dehydration, or medicine side effects. Diseases of the muscles, heart, nerves, and blood vessels can make you weak. Sometimes the problem is simply depression or lack of exercise. You should get plenty of rest. Unless the doctor tells you otherwise, it's usually best to add short periods of regular mild exercise. Eat a nutritious diet with multiple small, low-sugar meals. If symptoms continue, additional medical evaluation will be necessary. Be sure to follow up as instructed. If you become very dizzy, nauseated, or feel like you're going to faint, lie down right away. Wait until the symptoms have passed before you get up again. Stand up slowly. Call the doctor or return if you develop chest pain, abdominal pain, severe headache, irregular heartbeat or very fast pulse, confusion, vision problems, fever, muscular pain, or any other new symptom. Referrals: MARIA DE JESUS LOJA PA-C [Primary Care Provider] - Follow up as needed Scribe Attestation: 10/19/17 15:47 I personally performed the services described in the documentation, reviewed and edited the documentation which was dictated to the scribe in my presence, and it accurately records my words and actions. (OMAIRA WHITLOCK) Scribe Documentation - Scribe Written by Daniel:: Daniel Mccauley, 10/19/2017 13:08 acting as scribe for :: Sarkis <KRISTEN WAGONER - Last Filed: 10/19/17 15:48>
[2017-10-19 13:52] LABS: HEMATOCRIT 40.1 % (36.0-47.0); HEMOGLOBIN 13.3 g/dL (12.0-15.5); MEAN CORPUSCULAR HEMOGLOBIN 28.7 pg (27.0-33.4); MEAN CORPUSCULAR HGB CONC 33.1 g/dL (32.0-36.0); MEAN CORPUSCULAR VOLUME 87 fl (80-97); PLATELET COUNT 211 10^3/uL (150-450); RED BLOOD COUNT 4.62 10^6/uL (3.72-5.28); RED CELL DISTRIBUTION WIDTH 13.8 % (11.5-14.0); WHITE BLOOD COUNT 7.5 10^3/uL (4.0-10.5)
[2017-10-19 14:10] LABS: ALANINE AMINOTRANSFERASE 19 U/L (9-52); ALBUMIN 3.4 g/dL (3.5-5.0); ALKALINE PHOSPHATASE 72 U/L (38-126); ANION GAP 10 (5-19); ASPARTATE AMINO TRANSFERASE 16 U/L (14-36); BILIRUBIN,DIRECT 0.3 mg/dL (0.0-0.4); BILIRUBIN,TOTAL 0.5 mg/dL (0.2-1.3); BLOOD UREA NITROGEN 19 mg/dL (7-20); CALCIUM 9.2 mg/dL (8.4-10.2); CARBON DIOXIDE 29 mmol/L (22-30); CHLORIDE 105 mmol/L (98-107); GLUCOSE 93 mg/dL (75-110); POTASSIUM 4.6 mmol/L (3.6-5.0); SODIUM 144.1 mmol/L (137-145); TOTAL PROTEIN 5.4 g/dL (6.3-8.2)
[2017-10-19 14:25] LABS: CREATINE KINASE < 20 U/L (30-135)
[2017-10-19 14:29] LABS: ABSOLUTE LYMPHOCYTES# (MANUAL) 1.3 10^3/uL (0.5-4.7); ABSOLUTE MONOCYTES # (MANUAL) 0.7 10^3/uL (0.1-1.4); ABSOLUTE NEUTROPHILS# (MANUAL) 5.5 10^3/uL (1.7-8.2); BASOPHILS % (MANUAL) 0 % (0-2); EOSINOPHILS % (MANUAL) 1 % (0-6); LYMPHOCYTES % (MANUAL) 17 % (13-45); MONOCYTES % (MANUAL) 9 % (3-13); PLATELET CLUMPS PRESENT; PLATELET COMMENT ADEQUATE; PLATELET LARGE PRESENT; SEGMENTED NEUTROPHILS % (MAN) 73 % (42-78); TOTAL CELLS COUNTED 100
[2017-10-19 15:07] LABS: APPEARANCE,URINE CLEAR; BILIRUBIN,URINE NEGATIVE (NEGATIVE); COLOR,URINE YELLOW; GLUCOSE, URINE NEGATIVE (NEGATIVE); KETONES,URINE NEGATIVE (NEGATIVE); LEUKOCYTE ESTERASE,URINE NEGATIVE (NEGATIVE); NITRITE,URINE POSITIVE (NEGATIVE); PROTEIN,URINE NEGATIVE (NEGATIVE); URINE SPECIFIC GRAVITY 1.006; UROBILINOGEN,URINE NEGATIVE mg/dL (<2.0)
[2017-10-19 16:08] VITALS: BP 113/49
--- NOTE | 2017-10-20 19:13 | EKG REPORT ---
SEVERITY:- ABNORMAL ECG - SINUS RHYTHM RIGHT BUNDLE BRANCH BLOCK : Confirmed by: Clari Walker MD 20-Oct-2017 19:12:36
== END 2017-10-19 16:09 | disposition home or self-care (01) ==
LOC: ER 12:42
DX: R53.1 Weakness (principal); J44.9 Chronic obstructive pulmonary disease, unspecified; I45.10 Unspecified right bundle-branch block; Z88.0 Allergy status to penicillin
CPT/HCPCS: 36415; 51701; 80053; 81001; 82550; 84484; 85025; 87086; 87088; 87186; 93005; 93010; 99285

== ENCOUNTER 2017-10-19 17:38 | Inpatient (IN) | payer MEDICARE ==
--- NOTE | 2017-10-19 18:01 | RADIOLOGY REPORT (SQ) ---
EXAM DESCRIPTION: CHEST SINGLE VIEW COMPLETED DATE/TIME: 10/19/2017 5:53 pm REASON FOR STUDY: STROKE ALERT COMPARISON: 08/22/2017 EXAM PARAMETERS: NUMBER OF VIEWS: One view. TECHNIQUE: Single frontal radiographic view of the chest acquired. RADIATION DOSE: NA LIMITATIONS: None. FINDINGS: LUNGS AND PLEURA: No opacities, masses or pneumothorax. No pleural effusion. MEDIASTINUM AND HILAR STRUCTURES: No masses. Contour normal. HEART AND VASCULAR STRUCTURES: Heart normal in size. Normal vasculature. BONES: No acute findings. HARDWARE: None in the chest. OTHER: No other significant finding. IMPRESSION: NO ACUTE RADIOGRAPHIC FINDING IN THE CHEST. TECHNICAL DOCUMENTATION: JOB ID: [id number] [employer]- All Rights Reserved Reading location - IP/workstation name: [email or web address]
--- NOTE | 2017-10-19 18:19 | RADIOLOGY REPORT (SQ) ---
EXAM DESCRIPTION: CT HEAD WITHOUT COMPLETED DATE/TIME: 10/19/2017 6:07 pm REASON FOR STUDY: STROKE ALERT COMPARISON: 06/23/2017 TECHNIQUE: Axial images acquired through the brain without intravenous contrast. Images reviewed wi th bone, brain and subdural windows. Additional sagittal and coronal reconstructions were generated. Images stored on PACS. All CT scanners at this facility use dose modulation, iterative reconstruction, and/or weight based d osing when appropriate to reduce radiation dose to as low as reasonably achievable (ALARA). [facility]: Dose Right [facility]: CareDose [facility]: Dose Right [facility]: Teradose 4D [facility]: [employer] Technologies RADIATION DOSE: CT Rad equipment meets quality standard of care and radiation dose reduction techniq ues were employed. CTDIvol: 53.2 mGy. DLP: 964 mGy-cm.mGy. LIMITATIONS: None. FINDINGS: VENTRICLES: Prominent. CEREBRUM: Re- demonstration of extensive left frontal, temporal, and parietal encephalomalacia consis tent with sequela of remote ischemic injury. Likewise, right frontal encephalomalacia consistent wit h previous infarct. These findings are unchanged in the study interval. No masses. No hemorrhage. No midline shift. Areas of low density in the white matter most likely due to chronic micro-vascula r ischemic change. No evidence for acute infarction. CEREBELLUM: No masses. No hemorrhage. No alteration of density. No evidence for acute infarction. EXTRAAXIAL SPACES: Age-related involutional change. No fluid collections. No masses. ORBITS AND GLOBE: No intra- or extraconal masses. Normal contour of globe without masses. CALVARIUM: No fracture. PARANASAL SINUSES: No fluid or mucosal thickening. SOFT TISSUES: No mass or hematoma. OTHER: No other significant finding. IMPRESSION: Stable CT appearance of the brain demonstrating multifocal encephalomalacia on the basis of chronic post ischemic injury. Background of microvascular ischemic changes. No evidence of acut e intracranial hemorrhage or infarct. EVIDENCE OF ACUTE STROKE: NO. TECHNICAL DOCUMENTATION: JOB ID: [id number] Quality ID # [id number]: Final reports with documentation of one or more dose reduction techniques (e.g., Au tomated exposure control, adjustment of the mA and/or kV according to patient size, use of iterative reconstruction technique) 2010 [employer]- All Rights Reserved Reading location - IP/workstation name: [email or web address]
--- NOTE | 2017-10-19 19:24 | ER Document Report ---
ED General - General Chief Complaint: S/S of Possible Stroke Stated Complaint: POSSIBLE SEIZURE Time Seen by Provider: 10/19/17 18:05 Mode of Arrival: Medic Information source: Patient, Relative Notes: 87-year-old female brought to the emergency department by EMS for right upper and lower extremity weakness and seizure-like activity. Patient was seen earlier in the day in the emergency department. She was sent here from a nursing facility for possible fall and generalized weakness. Patient's labs were within normal limits. Patient was discharged back to the nursing facility. Patient's son and power of supervisor inspecting were with the patient. He decided to take her out to lunch prior to going back to the halfway. While they were eating he noticed that she was having some tonic-clonic movements. He is unsure if she was choking or she was having a seizure. EMS was contacted. He was noted by them that she had right upper and lower extremity weakness. Patient does not have a seizure history. She does have a prior history of CVA affecting her swallowing. TRAVEL OUTSIDE OF THE [place] IN LAST 30 DAYS: No - HPI Onset: Just prior to arrival Onset/Duration: Sudden Quality of pain: No pain Severity: None Associated symptoms: None Exacerbated by: Denies Relieved by: Denies Similar symptoms previously: No Recently seen / treated by doctor: No - Related Data Allergies/Adverse Reactions: Penicillins Allergy (Verified 10/19/17 17:43) Past Medical History - General Information source: Relative - Social History Smoking Status: Never Smoker Family History: Reviewed & Not Pertinent, Other - Unable - Past Medical History Cardiac Medical History: Reports: Hx Hypercholesterolemia Pulmonary Medical History: Reports: Hx COPD Neurological Medical History: Reports: Hx Cerebrovascular Accident Endocrine Medical History: Reports: Hx Hypothyroidism Renal/ Medical History: Denies: Hx Peritoneal Dialysis GI Medical History: Reports: Hx Gastroesophageal Reflux Disease Psychiatric Medical History: Reports: Hx Dementia - Immunizations Hx Diphtheria, Pertussis, Tetanus Vaccination: Yes Review of Systems - Review of Systems Constitutional: No symptoms reported EENT: No symptoms reported Cardiovascular: No symptoms reported Respiratory: No symptoms reported Gastrointestinal: No symptoms reported Genitourinary: No symptoms reported Female Genitourinary: No symptoms reported Musculoskeletal: No symptoms reported Skin: No symptoms reported Hematologic/Lymphatic: No symptoms reported Neurological/Psychological: Weakness, Seizure Physical Exam - Vital signs Vitals: Temp Pulse Resp BP Pulse Ox 97.9 F 85 16 133/49 H 95 10/19/17 17:43 10/19/17 17:43 10/19/17 17:43 10/19/17 17:43 10/19/17 17:43 Interpretation: Normal - Notes Notes: PHYSICAL EXAMINATION: GENERAL: Well-appearing, well-nourished and in no acute distress. HEAD: Atraumatic, normocephalic. EYES: Pupils equal round and reactive to light, extraocular movements intact, conjunctiva are normal. ENT: Nares patent, oropharynx clear without exudates. Moist mucous membranes. NECK: Normal range of motion, supple without lymphadenopathy LUNGS: Breath sounds clear to auscultation bilaterally and equal. No wheezes rales or rhonchi. HEART: Regular rate and rhythm without murmurs ABDOMEN: Soft, nontender, nondistended abdomen. No guarding, no rebound. No masses appreciated. Female : deferred Musculoskeletal: Normal range of motion, no pitting or edema. No cyanosis. NEUROLOGICAL: Old left sided facial droop per son. Normal speech. Normal sensory. RUE and RLE weakness on exam. PSYCH: Normal mood, normal affect. SKIN: Warm, Dry, normal turgor, no rashes or lesions noted. Course - Re-evaluation Re-evalutation: 10/19/17 19:28 Patient had a seizure while in the emergency department. No history of seizures. Patient is a DNR. I discussed with son the patient's plan of care. He does not want her transferred to see a neurologist. Patient requests that she stays at [facility]. He does not want to change her DNR status. I spoke with the hospitalist on-call. He is agreeable with admitting the patient. Patient is currently stable. - Vital Signs Vital signs: Temp Pulse Resp BP Pulse Ox 97.9 F 85 16 133/49 H 95 10/19/17 17:43 10/19/17 17:43 10/19/17 17:43 10/19/17 17:43 10/19/17 17:43 Discharge - Discharge Clinical Impression: Seizure CVA (cerebral vascular accident) Qualifiers: CVA mechanism: unspecified Qualified Code(s): I63.9 - Cerebral infarction, unspecified Condition: Good Disposition: ADMITTED OBSERVATION Admitting Provider: Hospitalist Unit Admitted: Medical Floor Referrals: MARIA DE JESUS LOJA PA-C [Primary Care Provider] - Follow up as needed
--- NOTE | 2017-10-19 19:52 | PDOC H&P ---
History of Present Illness Admission Date/PCP: 10/19/17 19:33 MARIA DE JESUS LOJA PA-C History of Present Illness: BABS ONTIVEROS is a 87 year old female from [facility] brought to the emergency department by EMS for right upper and lower extremity weakness and seizure-like activity. Since patient is nonverbal and underlying cognitive impairment, brief history is obtained from ER attending note and from her son who is in the room during my encounter. Patient was seen earlier in the day in the emergency department she was sent here from [facility] for possible falls and generalized body weakness. Patient was discharged back to the shelter. Prior to going back to the shelter her son who is her POA decided to take her out for lunch and he witnessed while she is having tonic-clonic like seizure. Even though patient has left facial droop after she had a stroke 6 years ago, it looks pronounced per her son. At her baseline patient ambulates without cane or walker. Detailed history and review of systems unobtainable. Past Medical History Cardiac Medical History: Reports: Hyperlipidema Pulmonary Medical History: Reports: Chronic Obstructive Pulmonary Disease (COPD) Endocrine Medical History: Reports: Hypothyroidism GI Medical History: Reports: Gastroesophageal Reflux Disease Psychiatric Medical History: Reports: Dementia Social History Smoking Status: Former Smoker Frequency of Alcohol Use: None Hx Recreational Drug Use: No Drugs: None - Advance Directive Resuscitation Status: Do Not Resuscitate Family History Family History: Reviewed & Not Pertinent, Other - Unable Parental Family History Reviewed: No Children Family History Reviewed: No Sibling(s) Family History Reviewed.: No Medication/Allergy Home Medications: Aspirin [Aspirin 81 mg Chewable Tablet] 81 mg PO DAILY 02/01/13 Ciprofloxacin HCl [Cipro 500 mg Tablet] 500 mg PO BID #20 tablet 02/01/13 Levothyroxine Sodium [Synthroid 0.025 mg Tablet] 25 mcg PO DAILY 02/01/13 Phosp Acid/Dextrose/Fructose [Emetrol Oral Solution] 15 ml PO Q15MP PRN Simvastatin [Zocor 20 mg Tablet] 20 mg PO QHS 02/01/13 Vit D3-Vit K/Berberine/Hops [Ostera Tablet] 1 each PO DAILY 02/01/13 Zolpidem Tartrate [Ambien 5 mg Tablet] 5 mg PO HSP PRN 02/01/13 Ciprofloxacin HCl [Cipro 500 mg Tablet] 500 mg PO BID #20 tablet 05/31/14 Metronidazole [Flagyl 500 mg Tablet] 500 mg PO TID #30 tablet 05/31/14 Ciprofloxacin HCl [Cipro 500 mg Tablet] 500 mg PO BID #14 tablet 10/02/14 Ciprofloxacin HCl [Cipro 500 mg Tablet] 500 mg PO BID #14 tablet 08/22/17 Allergies/Adverse Reactions: Penicillins Allergy (Verified 10/19/17 17:43) Review of Systems ROS unobtainable: Due to mental status Physical Exam Vital Signs: Temp Pulse Resp BP Pulse Ox 97.9 F 85 15 136/61 H 99 10/19/17 17:43 10/19/17 18:00 10/19/17 19:30 10/19/17 19:30 10/19/17 19:30 General appearance: PRESENT: no acute distress Head exam: PRESENT: atraumatic Neck exam: ABSENT: carotid bruit, JVD, lymphadenopathy, thyromegaly Respiratory exam: PRESENT: clear to auscultation oksana. ABSENT: rales, rhonchi, wheezes Cardiovascular exam: PRESENT: RRR. ABSENT: diastolic murmur, rubs, systolic murmur GI/Abdominal exam: PRESENT: normal bowel sounds, soft. ABSENT: distended, guarding, mass, organolmegaly, rebound, tenderness Neurological exam: PRESENT: alert, awake, other - Patient has right-sided weakness of both upper and lower extremity about 3/5 and she has left side pronounced with facial droop and obliteration of the nasolabial fold Results Impressions: Chest X-Ray 10/19/17 00:00 IMPRESSION: NO ACUTE RADIOGRAPHIC FINDING IN THE CHEST. Head CT 10/19/17 00:00 IMPRESSION: Stable CT appearance of the brain demonstrating multifocal encephalomalacia on the basis of chronic post ischemic injury. Background of microvascular ischemic changes. No evidence of acute intracranial hemorrhage or infarct. EVIDENCE OF ACUTE STROKE: NO. Assessment & Plan - Diagnosis (1) Stroke Qualifiers: Laterality of affected vessel: right Is this a current diagnosis for this admission?: Yes Plan: Patient has pronounced at left facial droop according to report from her son. She has also right upper and lower extremity which is about 3/5 strength We will start her on aspirin and high intensity statin. We will keep her n.p.o. until she is cleared by speech therapist. MRI of the brain. (2) New onset seizure Is this a current diagnosis for this admission?: Yes Plan: The seizure looks like tonic-clonic according to the description of her son. Patient has been started on IV Keppra (3) Hypothyroidism (acquired) Is this a current diagnosis for this admission?: Yes Plan: Continue his Synthroid (4) Dementia Qualifiers: Dementia type: unspecified type Is this a current diagnosis for this admission?: Yes Plan: Without behavioral disorder. We will continue her home medication if she has any - Inpatient Certification Medical Necessity: Significant Comorbidiites Make Outpatient Treatment Too Risky , Need Close Monitoring Due to Risk of Patient Decompensation
[2017-10-19] MEDS ORDERED: LEVETIRACETAM 500 MG/NACL-ISO 500 MG/100 ML RTUPB IV ONE (20:00)
--- NOTE | 2017-10-19 23:01 | EKG REPORT ---
SEVERITY:- ABNORMAL ECG - SINUS RHYTHM RIGHT BUNDLE BRANCH BLOCK : Confirmed by: Clari Walekr MD 19-Oct-2017 22:59:46
[2017-10-20] MEDS ORDERED: LEVETIRACETAM 500 MG/NACL-ISO 500 MG/100 ML RTUPB IV ONE (00:11)
[2017-10-20] MEDS: ATORVASTATIN CALCIUM 80 MG TABLET PO SCH ×2 (00:25→21:32)
[2017-10-20 06:11] LABS: HEMATOCRIT 37.5 % (36.0-47.0); HEMOGLOBIN 12.7 g/dL (12.0-15.5); MEAN CORPUSCULAR HEMOGLOBIN 28.6 pg (27.0-33.4); MEAN CORPUSCULAR HGB CONC 33.7 g/dL (32.0-36.0); MEAN CORPUSCULAR VOLUME 85 fl (80-97); PLATELET COUNT 222 10^3/uL (150-450); RED BLOOD COUNT 4.43 10^6/uL (3.72-5.28); RED CELL DISTRIBUTION WIDTH 13.6 % (11.5-14.0); WHITE BLOOD COUNT 7.7 10^3/uL (4.0-10.5)
[2017-10-20 06:30] LABS: ALANINE AMINOTRANSFERASE 22 U/L (9-52); ALBUMIN 3.1 g/dL (3.5-5.0); ALKALINE PHOSPHATASE 67 U/L (38-126); ANION GAP 11 (5-19); ASPARTATE AMINO TRANSFERASE 22 U/L (14-36); BILIRUBIN,DIRECT 0.3 mg/dL (0.0-0.4); BILIRUBIN,TOTAL 0.3 mg/dL (0.2-1.3); BLOOD UREA NITROGEN 22 mg/dL (7-20); CARBON DIOXIDE 27 mmol/L (22-30); CHLORIDE 107 mmol/L (98-107); GLUCOSE 99 mg/dL (75-110); POTASSIUM 3.9 mmol/L (3.6-5.0); SODIUM 144.6 mmol/L (137-145); TOTAL PROTEIN 5.4 g/dL (6.3-8.2)
[2017-10-20] MEDS ORDERED: ASPIRIN 300 MG SUPP, RECTAL PR SCH (10:00)
[2017-10-20] MEDS: PANTOPRAZOLE SODIUM 40 MG VIAL IV SCH (11:16)
[2017-10-20] MEDS: LEVETIRACETAM 500 MG/NACL-ISO 500 MG/100 ML RTUPB IV SCH ×2 (11:16→21:31)
[2017-10-20] MEDS: ENOXAPARIN SODIUM INJ 40 MG/0.4 ML DISP.SYRIN SUBCUT SCH (11:18)
--- NOTE | 2017-10-20 15:02 | Progress Note ---
Provider Note Provider Note: 87 y.o. F presents to [facility] with stroke-like symptoms (R facial droop, R sided weakness) and new onset seizure. Patient was having lunch with her son when he states he witnessed tonic-clonic like activity. He admits he is not sure if she was having a seizure or if she was choking. Admitted to hospitalist service for stroke/seizure workup. Upon evaluation, the patient does not open her eyes but she will attempt to answer questions. Speech is slurred. RUE flaccid, + sensation. RLE 2/5 strength. R facial droop. PERRLA. 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 STROKE: Patient has a PMH of CVA 6 years ago. Residual right-sided deficits. Son reports that the patient's right-sided weakness and right-sided facial droop are now worse. Head CT negative for hemorrhagic stroke. MRI/MRA head completed, results pending. 2. SEIZURE: Son admits he is unclear if patient was choking on food or experience seizure. Given her worsening neurological symptoms following the episode, initiated Keppra IV. Plan for EEG. 3. HYPOTHYROIDISM: History of hypothyroidism, continue p.o. Synthroid 4. DEMENTIA: History of dementia, continue Aricept and Namenda
--- NOTE | 2017-10-20 15:34 | RADIOLOGY REPORT (SQ) ---
EXAM DESCRIPTION: MRA HEAD WITHOUT; MRI HEAD WITHOUT COMPLETED DATE/TIME: 10/20/2017 1:45 pm; 10/20/2017 1:46 pm REASON FOR STUDY: evaluate for stroke, hemorrhage, aneurysm COMPARISON: CT scan 10/19/2017 TECHNIQUE: Multiplanar imaging includes non-contrasted T1, T2, FLAIR, and diffusion with ADC map seq uences. Images stored on PACS. LIMITATIONS: None. FINDINGS: ANATOMY: No anomalies. Normal vascular flow voids. Pituitary fossa normal. CSF SPACES: Atrophy induced prominence of ventricles and CSF spaces. CEREBRUM: High signal intensity lesions scattered throughout the white matter on FLAIR imaging with d istribution suggesting micro-vascular ischemic changes. Old infarcts. Largest is left parietal. No evidence of hemorrhage, mass, or extraaxial fluid collection. POSTERIOR FOSSA: No signal alteration. No hemorrhage. No edema, masses or mass effect. Internal allyn tory canals, cerebello-pontine angles, mastoids normal. DIFFUSION IMAGING: Restricted diffusion cortex of the left parietal lobe which is an extension of the old left parietal infarct. ORBITS: No masses. Globes normal. PARANASAL SINUSES: No fluid levels. Mucosa normal. OTHER: No other significant finding. TECHNIQUE: Axial 3-D [id number] acquisition imaging performed through the brain in the area of the [place]. Images reformatted using 3-D MIPS. FINDINGS: SOURCE IMAGES: No unexpected findings on source images. No large masses. 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 Generalize atherosclerosis. OTHER: No other significant finding. 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 Genera lize atherosclerosis. IMPRESSION: Marked microvascular ischemia and old infarcts. Acute infarct as an extension of the ol d left parietal infarct. EVIDENCE OF ACUTE STROKE: Yes LEFT MCA TECHNICAL DOCUMENTATION: JOB ID: [id number] [employer]- All Rights Reserved Reading location - IP/workstation name: [email or web address]
--- NOTE | 2017-10-20 15:34 | RADIOLOGY REPORT (SQ) ---
EXAM DESCRIPTION: MRA HEAD WITHOUT; MRI HEAD WITHOUT COMPLETED DATE/TIME: 10/20/2017 1:45 pm; 10/20/2017 1:46 pm REASON FOR STUDY: evaluate for stroke, hemorrhage, aneurysm COMPARISON: CT scan 10/19/2017 TECHNIQUE: Multiplanar imaging includes non-contrasted T1, T2, FLAIR, and diffusion with ADC map seq uences. Images stored on PACS. LIMITATIONS: None. FINDINGS: ANATOMY: No anomalies. Normal vascular flow voids. Pituitary fossa normal. CSF SPACES: Atrophy induced prominence of ventricles and CSF spaces. CEREBRUM: High signal intensity lesions scattered throughout the white matter on FLAIR imaging with d istribution suggesting micro-vascular ischemic changes. Old infarcts. Largest is left parietal. No evidence of hemorrhage, mass, or extraaxial fluid collection. POSTERIOR FOSSA: No signal alteration. No hemorrhage. No edema, masses or mass effect. Internal allyn tory canals, cerebello-pontine angles, mastoids normal. DIFFUSION IMAGING: Restricted diffusion cortex of the left parietal lobe which is an extension of the old left parietal infarct. ORBITS: No masses. Globes normal. PARANASAL SINUSES: No fluid levels. Mucosa normal. OTHER: No other significant finding. TECHNIQUE: Axial 3-D [id number] acquisition imaging performed through the brain in the area of the [place]. Images reformatted using 3-D MIPS. FINDINGS: SOURCE IMAGES: No unexpected findings on source images. No large masses. 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 Generalize atherosclerosis. OTHER: No other significant finding. 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 Genera lize atherosclerosis. IMPRESSION: Marked microvascular ischemia and old infarcts. Acute infarct as an extension of the ol d left parietal infarct. EVIDENCE OF ACUTE STROKE: Yes LEFT MCA TECHNICAL DOCUMENTATION: JOB ID: [id number] [employer]- All Rights Reserved Reading location - IP/workstation name: [email or web address]
--- NOTE | 2017-10-20 19:12 | EKG REPORT ---
SEVERITY:- ABNORMAL ECG - SINUS RHYTHM MULTIFORM VENTRICULAR PREMATURE COMPLEXES RIGHT BUNDLE BRANCH BLOCK : Confirmed by: Clari Walker MD 20-Oct-2017 19:10:55
[2017-10-20] MEDS: MIRTAZAPINE 15 MG TABLET PO SCH (21:32)
[2017-10-20] MEDS: ASPIRIN 81 MG TABLET, CHEWABLE PO SCH (21:32)
[2017-10-20] MEDS: BUPROPION HCL 75 MG TABLET PO SCH (21:32)
[2017-10-20] MEDS: DONEPEZIL HCL 5 MG TABLET PO SCH (21:32)
[2017-10-20] MEDS ORDERED: (PENDING PHARMACY ID) (Donepezil Hcl [Aricept] 10 MG) PO SCH (22:00)
[2017-10-21 04:48] LABS: HEMATOCRIT 40.9 % (36.0-47.0); HEMOGLOBIN 13.7 g/dL (12.0-15.5); MEAN CORPUSCULAR HEMOGLOBIN 28.5 pg (27.0-33.4); MEAN CORPUSCULAR HGB CONC 33.6 g/dL (32.0-36.0); MEAN CORPUSCULAR VOLUME 85 fl (80-97); PLATELET COUNT 205 10^3/uL (150-450); RED BLOOD COUNT 4.83 10^6/uL (3.72-5.28); RED CELL DISTRIBUTION WIDTH 13.4 % (11.5-14.0); WHITE BLOOD COUNT 7.2 10^3/uL (4.0-10.5)
[2017-10-21 05:06] LABS: ANION GAP 10 (5-19); BLOOD UREA NITROGEN 20 mg/dL (7-20); CALCIUM 8.7 mg/dL (8.4-10.2); CARBON DIOXIDE 25 mmol/L (22-30); CHLORIDE 108 mmol/L (98-107); GLUCOSE 77 mg/dL (75-110); PHOSPHORUS 3.7 mg/dL (2.5-4.5); POTASSIUM 4.2 mmol/L (3.6-5.0)
[2017-10-21] MEDS: LEVOTHYROXINE SODIUM 0.05 MG TABLET PO SCH (06:08)
[2017-10-21] MEDS ORDERED: (PENDING PHARMACY ID) (Memantine Hcl [Namenda] 5 MG) PO SCH (10:00)
[2017-10-21] MEDS: ENOXAPARIN SODIUM INJ 40 MG/0.4 ML DISP.SYRIN SUBCUT SCH (11:13)
[2017-10-21] MEDS: BUPROPION HCL 75 MG TABLET PO SCH ×2 (11:14→21:34)
[2017-10-21] MEDS: CHOLECALCIFEROL (D3) 1,000 UNIT TABLET PO SCH (11:14)
[2017-10-21] MEDS: MEMANTINE HCL 10 MG TABLET PO SCH (11:15)
[2017-10-21] MEDS: LEVETIRACETAM 500 MG/NACL-ISO 500 MG/100 ML RTUPB IV SCH ×2 (11:15→21:34)
[2017-10-21] MEDS: ASPIRIN 81 MG TABLET, CHEWABLE PO SCH ×2 (11:15→21:34)
[2017-10-21] MEDS: PANTOPRAZOLE SODIUM 40 MG VIAL IV SCH (11:16)
--- NOTE | 2017-10-21 16:58 | PDOC PROGRESS REPORT ---
Subjective Progress Note for:: 10/21/17 Subjective:: BABS ONTIVEROS is a 87 y.o. F who presented to [facility] with stroke-like symptoms (R facial droop, R sided weakness) and new onset seizure. Patient was having lunch with her son when he states he witnessed tonic-clonic like activity. He admits he is not sure if she was having a seizure or if she was choking. Admitted to hospitalist service for stroke/seizure workup. Upon evaluation, the patient does not open her eyes but she will attempt to answer questions. Speech is slurred. She will sometimes be able to tell me her name, but otherwise cannot will answer questions appropriately. RUE flaccid, +sensation. RLE 2/5 strength. R facial droop. PERRLA. Patient seen by speech therapy, able to tolerate puree diet but required someone to assist with feeding. Discussion with son (Wallace) today about ad terminal makeup operator plan for patient. My concern is that she does not initiate feeding herself , will require someone to feed her for every meal. If the SNF cannot offer this support, the patient may require a PEG tube. Wallace states the patient has previously expressed that she does not want a feeding tube. The family would like to ask the SNF if they have the staff to feed her, they would also like to see what kind of progress she makes in the next 48 hrs. If the patient does not improve and if they do not want to pursue a PEG, plan for palliative care to meet with family. Reason For Visit: STROKE/TIA. NEW ONSET SEIZURE Physical Exam Vital Signs: Temp Pulse Resp BP Pulse Ox 97.6 F 73 18 145/68 H 98 10/21/17 11:41 10/21/17 14:00 10/21/17 11:41 10/21/17 11:41 10/21/17 11:41 Intake & Output 10/20/17 10/21/17 10/22/17 06:59 06:59 06:59 Intake Total 100 100 Output Total 0 0 Balance 100 100 Weight 46.9 kg 46.9 kg General appearance: PRESENT: thin Head exam: PRESENT: atraumatic Eye exam: PRESENT: conjunctiva pink, PERRLA Mouth exam: PRESENT: tongue midline, other - R sided facial droop Teeth exam: PRESENT: poor dentation Neck exam: PRESENT: full ROM Respiratory exam: PRESENT: clear to auscultation oksana, symmetrical, unlabored Cardiovascular exam: PRESENT: +S1, +S2 Pulses: PRESENT: normal radial pulses, normal dorsalis pedis pul GI/Abdominal exam: PRESENT: normal bowel sounds, soft. ABSENT: tenderness Rectal exam: PRESENT: deferred Extremities exam: ABSENT: full ROM - RLE weakness RUE weakness Musculoskeletal exam: ABSENT: ambulatory, full ROM Neurological exam: ABSENT: alert, awake, oriented to person, oriented to place, oriented to time, oriented to situation Skin exam: PRESENT: dry, intact, pallor Results Laboratory Results: 10/21/17 04:28 10/21/17 04:28 10/21/17 10/21/17 04:28 04:28 WBC 7.2 RBC 4.83 Hgb 13.7 Hct 40.9 MCV 85 MCH 28.5 MCHC 33.6 RDW 13.4 Plt Count 205 Sodium 143.0 Potassium 4.2 Chloride 108 H Carbon Dioxide 25 Anion Gap 10 BUN 20 Creatinine 0.76 Est GFR ( Amer) > 60 Est GFR (Non-Af Amer) > 60 Glucose 77 Calcium 8.7 Phosphorus 3.7 Magnesium 2.1 Impressions: Chest X-Ray 10/19/17 00:00 IMPRESSION: NO ACUTE RADIOGRAPHIC FINDING IN THE CHEST. Head CT 10/19/17 00:00 IMPRESSION: Stable CT appearance of the brain demonstrating multifocal encephalomalacia on the basis of chronic post ischemic injury. Background of microvascular ischemic changes. No evidence of acute intracranial hemorrhage or infarct. EVIDENCE OF ACUTE STROKE: NO. Brain MRI with MRA 10/20/17 00:00 IMPRESSION: Marked microvascular ischemia and old infarcts. Acute infarct as an extension of the old left parietal infarct. EVIDENCE OF ACUTE STROKE: Yes LEFT MCA Head MRI 10/20/17 00:00 IMPRESSION: Marked microvascular ischemia and old infarcts. Acute infarct as an extension of the old left parietal infarct. EVIDENCE OF ACUTE STROKE: Yes LEFT MCA Status: Imported from PACS Assessment & Plan - Diagnosis (1) CVA (cerebral vascular accident) Qualifiers: CVA mechanism: unspecified Qualified Code(s): I63.9 - Cerebral infarction, unspecified Is this a current diagnosis for this admission?: Yes Plan: Patient has a PMH of CVA 6 years ago. Residual right-sided deficits. Son reports that the patient's right-sided weakness and right-sided facial droop are now worse. Head CT negative for hemorrhagic stroke. MRI/MRA shows acute infarct as an extension of the old left parietal infarct. ASA therapy Statin therapy Passed swallow evaluation, able to tolerate puree diet but does not initiate feeding herself. Able to tolerate puree diet. Talked to family about needing someone to feed her for every meal, questioned whether SNF has the ability to do that. If not, patient would require PEG. Family is unsure if the patient would want a PEG. Son, Wallace, plans to talk to staff at [facility] about their capabilities. Family will make decision in the upcoming days about SNF vs. PEG vs. palliative care. (2) New onset seizure Is this a current diagnosis for this admission?: Yes Plan: Son admits he is unclear if patient was choking on food or experience seizure. Given her worsening neurological symptoms following the episode, initiated Keppra IV. Plan for EEG. (3) Dementia Qualifiers: Dementia type: unspecified type Is this a current diagnosis for this admission?: Yes Plan: History of dementia, continue Aricept and Namenda - Time Time Spent with patient: 15-24 minutes Medications reviewed and adjusted accordingly: Yes Anticipated discharge: SNF - Inpatient Certification Based on my medical assessment, after consideration of the patient's comorbidities, presenting symptoms, or acuity I expect that the services needed warrant INPATIENT care.: Yes I certify that my determination is in accordance with my understanding of Medicare's requirements for reasonable and necessary INPATIENT services [42 CFR 412.3e].: Yes Medical Necessity: Risk of Complication if Not Cared For in Hospital - Plan Summary Plan Summary: SPEECH THERAPY. PEG TUBE PLACEMENT VS. PALLIATIVE CARE.
[2017-10-21] MEDS: ATORVASTATIN CALCIUM 80 MG TABLET PO SCH (21:34)
[2017-10-21] MEDS: DONEPEZIL HCL 5 MG TABLET PO SCH (21:34)
[2017-10-21] MEDS: MIRTAZAPINE 15 MG TABLET PO SCH (21:34)
[2017-10-22] MEDS ORDERED: HYDRALAZINE HCL INJ/PF 20 MG/1 ML SDV IV PRN (00:31)
[2017-10-22] MEDS: LEVOTHYROXINE SODIUM 0.05 MG TABLET PO SCH (05:20)
[2017-10-22 07:59] LABS: ALANINE AMINOTRANSFERASE 19 U/L (9-52); ALBUMIN 3.3 g/dL (3.5-5.0); ALKALINE PHOSPHATASE 74 U/L (38-126); ANION GAP 9 (5-19); ASPARTATE AMINO TRANSFERASE 18 U/L (14-36); BILIRUBIN,DIRECT 0.3 mg/dL (0.0-0.4); BILIRUBIN,TOTAL 0.6 mg/dL (0.2-1.3); BLOOD UREA NITROGEN 20 mg/dL (7-20); CALCIUM 8.9 mg/dL (8.4-10.2); CARBON DIOXIDE 27 mmol/L (22-30); CHLORIDE 106 mmol/L (98-107); GLUCOSE 86 mg/dL (75-110); POTASSIUM 4.3 mmol/L (3.6-5.0); SODIUM 142.2 mmol/L (137-145); TOTAL PROTEIN 5.7 g/dL (6.3-8.2)
[2017-10-22] MEDS: PANTOPRAZOLE SODIUM 40 MG VIAL IV SCH (10:03)
[2017-10-22] MEDS: MEMANTINE HCL 10 MG TABLET PO SCH (10:07)
[2017-10-22] MEDS: CHOLECALCIFEROL (D3) 1,000 UNIT TABLET PO SCH (10:08)
[2017-10-22] MEDS: ENOXAPARIN SODIUM INJ 40 MG/0.4 ML DISP.SYRIN SUBCUT SCH (10:08)
[2017-10-22] MEDS: BUPROPION HCL 75 MG TABLET PO SCH ×2 (10:08→21:46)
[2017-10-22] MEDS: ASPIRIN 81 MG TABLET, CHEWABLE PO SCH ×2 (10:08→21:46)
[2017-10-22] MEDS: LEVETIRACETAM 500 MG/NACL-ISO 500 MG/100 ML RTUPB IV SCH (10:09)
--- NOTE | 2017-10-22 16:36 | PDOC PROGRESS REPORT ---
Subjective Progress Note for:: 10/22/17 Subjective:: The patient is an 87 year old female with past medical history significant for advanced dementia, CVA with residual Rt side deficits, hyperlipidemia, hypothyroidism, COPD, and GERD who was admitted on 10/19/17 with seizure-like activity and worsening right-sided facial droop. The patient was seen on morning rounds. She was initially found sleeping; resting comfortably on room air. Upon saying her name, the patient opens her eyes, briefly makes eye contact, and then closes her eyes and turns her head away from me. She does not answer any further questions or make any comments. Per nursing, the patient participated with breakfast this morning and was able to tolerate a pured diet without difficulty. I did receive a call this afternoon stating that she was participatory with PT/OT; ambulated approximately 100 feet with minimal two person assist. This appears to be close to her baseline ambulatory status. Spoke with discharge planning; recommendations for acute rehabilitation prior to return to [facility]. Per nursing, the patient's son plans to be in town to see the patient tomorrow morning. Reason For Visit: STROKE/TIA. NEW ONSET SEIZURE Physical Exam Vital Signs: Temp Pulse Resp BP Pulse Ox 98.8 F 62 12 126/48 H 98 10/22/17 16:02 10/22/17 16:02 10/22/17 16:02 10/22/17 16:02 10/22/17 16:02 Intake & Output 10/21/17 10/22/17 10/23/17 06:59 06:59 06:59 Intake Total 100 221 Output Total 0 Balance 100 221 Weight 46.9 kg 54.8 kg General appearance: PRESENT: no acute distress, hard of hearing, thin, well- developed, well-nourished. ABSENT: cooperative Head exam: PRESENT: atraumatic, normocephalic Eye exam: PRESENT: conjunctiva pink, PERRLA. ABSENT: scleral icterus Ear exam: PRESENT: normal external ear exam Mouth exam: PRESENT: moist, other - Slight right facial droop Neck exam: ABSENT: carotid bruit, JVD, lymphadenopathy, thyromegaly Respiratory exam: PRESENT: clear to auscultation oksana, symmetrical, unlabored. ABSENT: rales, rhonchi, wheezes Cardiovascular exam: PRESENT: RRR, +S1, +S2. ABSENT: diastolic murmur, rubs, systolic murmur Pulses: PRESENT: normal dorsalis pedis pul Vascular exam: PRESENT: normal capillary refill GI/Abdominal exam: PRESENT: normal bowel sounds, soft. ABSENT: distended, guarding, mass, organolmegaly, rebound, tenderness Rectal exam: PRESENT: deferred Extremities exam: PRESENT: other - Does not participate with exam. ABSENT: calf tenderness, clubbing, pedal edema Neurological exam: PRESENT: alert, CN II-XII grossly intact, other - Exam limited secondary to patient participation. ABSENT: motor sensory deficit Psychiatric exam: PRESENT: other - Withdrawn. ABSENT: homicidal ideation, suicidal ideation Skin exam: PRESENT: dry, intact, warm. ABSENT: cyanosis, rash Results Laboratory Results: 10/21/17 04:28 10/22/17 07:05 10/22/17 07:05 Sodium 142.2 Potassium 4.3 Chloride 106 Carbon Dioxide 27 Anion Gap 9 BUN 20 Creatinine 0.88 Est GFR ( Amer) > 60 Est GFR (Non-Af Amer) > 60 Glucose 86 Calcium 8.9 Total Bilirubin 0.6 AST 18 ALT 19 Alkaline Phosphatase 74 Total Protein 5.7 L Albumin 3.3 L Impressions: Chest X-Ray 10/19/17 00:00 IMPRESSION: NO ACUTE RADIOGRAPHIC FINDING IN THE CHEST. Head CT 10/19/17 00:00 IMPRESSION: Stable CT appearance of the brain demonstrating multifocal encephalomalacia on the basis of chronic post ischemic injury. Background of microvascular ischemic changes. No evidence of acute intracranial hemorrhage or infarct. EVIDENCE OF ACUTE STROKE: NO. Brain MRI with MRA 10/20/17 00:00 IMPRESSION: Marked microvascular ischemia and old infarcts. Acute infarct as an extension of the old left parietal infarct. EVIDENCE OF ACUTE STROKE: Yes LEFT MCA Head MRI 10/20/17 00:00 IMPRESSION: Marked microvascular ischemia and old infarcts. Acute infarct as an extension of the old left parietal infarct. EVIDENCE OF ACUTE STROKE: Yes LEFT MCA Assessment & Plan - Diagnosis (1) CVA (cerebral vascular accident) Qualifiers: CVA mechanism: unspecified Qualified Code(s): I63.9 - Cerebral infarction, unspecified Is this a current diagnosis for this admission?: Yes Plan: Patient has a PMH of CVA 6 years ago; patient was admitted following new onset seizure-like activity and worsening right side deficits. Head CT negative for hemorrhagic stroke. MRI/MRA shows acute infarct as an extension of the old left parietal infarct. Echocardiogram and Carotid Dopplers are pending. The patient was admitted to [facility] on continuous cardiac telemetry; patient is refusing telemetry. No abnormal rhythms were observed while on monitoring. She is placed on daily aspirin and statin therapy. PT/OT/ST evaluations. Recommendations are for skilled rehabilitation at discharge with total feet of pured diet at each meal. Family have advised that they are not interested in pursuing PEG. Paliative Care is consulted. (2) Dementia Qualifiers: Dementia type: unspecified type Is this a current diagnosis for this admission?: Yes Plan: History of dementia; now complicated by worsening right-sided deficits secondary to CVA. Continue home dose Namenda and Aricept. Patient previously a resident of [facility]; may benefit from increased level of supervision at discharge. Anticipate need for short-term rehabilitation at minimum. Supportive care; provide for patient safety. (3) Hypothyroidism (acquired) Is this a current diagnosis for this admission?: Yes Plan: Last TSH from February 2017 is appropriate. Continue home dose of levothyroxine. (4) New onset seizure Is this a current diagnosis for this admission?: Yes Plan: EEG is completed; results are pending. We will transition to oral Keppra. Seizure precautions. (5) Generalized weakness Is this a current diagnosis for this admission?: Yes Plan: PT/OT evaluations; recommendations for acute rehabilitation at discharge. Encourage mobility; fall precautions. - Time Time Spent with patient: 25-34 minutes Anticipated discharge: Acute Rehab Within: within 48 hours
[2017-10-22] MEDS: SULFAMETHOXAZOLE/TRIMETHOPRIM 800-160 MG TABLET PO SCH (17:08)
[2017-10-22] MEDS: ATORVASTATIN CALCIUM 80 MG TABLET PO SCH (21:46)
[2017-10-22] MEDS: MIRTAZAPINE 15 MG TABLET PO SCH (21:47)
[2017-10-22] MEDS: DONEPEZIL HCL 5 MG TABLET PO SCH (21:47)
[2017-10-22] MEDS: LEVETIRACETAM ORAL SOLN 500 MG/5 ML UDCUP PO SCH (21:49)
--- NOTE | 2017-10-22 22:48 | Palliative Consultation Report ---
Consultation From:: VANI FELIZ Consult Reason: Palliaitve care - HPI Chief Complaint: CVA, AMS HPI: Palliative care consult visit 10/22/17 1:10 PM Appreciate palliative care consult request with this 87 year old woman who is a resident of [facility] due to dementia. Before admission patient was ambulatory and could feed herself. Apparently , she was sent to ER due to a fall at facility but was discharged back to facility. Her son had taken her out to eat lunch on the way back and it appears that she had an episode of choking or seizure activity and was returned to ER. It has since been determined that she had a left MCA CVA per MRI and it also shows evidence of previous strokes. Patient is awake at intervals, but today does not talk with me. She is frail and weak but does not appear to be in any pain or respiratory distress. Swallow studies have been completed and show that she is safe with pureed diet, however, she cannot feed herself. It is doubtful that she will be able to return to [facility] at discharge as she will require more care than [facility] staff can usually provide. SHe may benefit from rehab but with her advanced dementia, it may not be helpful other than to see if her debility from this stroke improve a little with time. Her labs and vital signs are stable at this time. Onset: Just prior to arrival Onset/Duration: Sudden Pain Level: Denies Associated Symptoms: Weakness Past Medical History(Consults) - General Information Source: [facility] Records Home Medications: Aspirin [Aspirin 81 mg Chewable Tablet] 81 mg PO Q12 02/01/13 Bupropion HCl [Wellbutrin 75 Mg Tablet] 75 mg PO Q12 10/20/17 Cholecalciferol (Vitamin D3) [Vitamin D3 1000 Unit Tablet] 2,000 unit PO DAILY 10/20/17 Cranberry Extract [Cranberry 405 mg Capsule] 405 mg PO DAILY 10/20/17 Cyanocobalamin (Vitamin B-12) [Vitamin B-12] 1,000 mcg SL MOWEFR@1000 10/20/17 Donepezil HCl [Aricept] 10 mg PO QHS 10/20/17 Levothyroxine Sodium [Synthroid 0.05 mg Tablet] 0.05 mg PO Q6AM 10/20/17 Memantine HCl [Namenda] 5 mg PO DAILY 07/01/18 Mirtazapine [Remeron 15 mg Tablet] 15 mg PO QHS 10/20/17 Ondansetron [Zofran Odt 4 mg Tablet] 4 mg PO TIDP PRN 10/20/17 Polyethylene Glycol 3350 [Miralax Powder 17 gm/Packet] 17 gm PO DAILY 10/20/17 Allergies/Adverse Reactions: Penicillins Allergy (Verified 10/19/17 17:43) - Social History Lives with: Other - Lives in [facility] Family History: None, Reviewed & Not Pertinent, Other - Unable Parental Family History Reviewed: No Children Family History Reviewed: No Sibling(s) Family History Reviewed.: No Smoking Status: Former Smoker Frequency of Alcohol Use: None Hx Recreational Drug Use: No Drugs: None Hx Prescription Drug Abuse: No - Past Medical History Cardiac Medical History: Reports: Hx Hypercholesterolemia Pulmonary Medical History: Reports: Hx COPD Neurological Medical History: Reports: Hx Cerebrovascular Accident Endocrine Medical History: Reports: Hx Hypothyroidism Renal/ Medical History: Denies: Hx Peritoneal Dialysis GI Medical History: Reports: Hx Gastroesophageal Reflux Disease Psychiatric Medical History: Reports: Hx Dementia Review of systems ROS unobtainable: due to mental statu Ojective:Exam Vital Signs: Temp Pulse Resp BP Pulse Ox 98.7 F 67 16 159/56 H 96 10/22/17 19:34 10/22/17 19:34 10/22/17 19:34 10/22/17 19:34 10/22/17 19:34 Intake & Output 10/21/17 10/22/17 10/23/17 06:59 06:59 06:59 Intake Total 100 221 100 Output Total 0 Balance 100 221 100 Weight 46.9 kg 54.8 kg - General General Appearance: Sleeping/easily aroused In distress: None - HEENT Head: Normocephalic Eyes: Normal Mouth/Lips: Normal Mucous membrane: Moist - Respiratory Respiratory Status: No respiratory distress Breath sounds: Clear - Cardiovascular Rhythm: Regular, Irregularly irregular Pulses: Normal: Radial - Extremities Upper extremity: Normal inspection Lower extremities: Normal inspection - Neurological Cognition: Confused Orientation: Oriented to person Motor exam: Weakness - Psychological Associated symptoms: Confused Objective-Diagnostic Laboratory: 10/21/17 04:28 10/22/17 07:05 10/22/17 07:05 Sodium 142.2 Potassium 4.3 Chloride 106 Carbon Dioxide 27 Anion Gap 9 BUN 20 Creatinine 0.88 Est GFR ( Amer) > 60 Est GFR (Non-Af Amer) > 60 Glucose 86 Calcium 8.9 Total Bilirubin 0.6 AST 18 ALT 19 Alkaline Phosphatase 74 Total Protein 5.7 L Albumin 3.3 L Plan and Recommendation Plan and Recommendation: I will be happy to talk with sons for support and to offer palliative care follow up after discharge. Will call son if no call from him in 24 hours. Patient has DNR order. Son states patient would not want feeding tube and if swallowing safely, should not need one anyway. However, she will have to go to facility that can feed her and give her liquids. I doubt she will be able to remember teaching from physical therapy but rehab may be choice for follow up care until determined if she will improve any from this stroke. Will follow for support for family. - Time Spent with Patient Time spent with patient: 15 to 30 Minutes Time: 30 min
[2017-10-23] MEDS: LEVOTHYROXINE SODIUM 0.05 MG TABLET PO SCH (05:15)
[2017-10-23 05:30] LABS: CHOLESTEROL 226.26 mg/dL (0-200); TRIGLYCERIDES 126 mg/dL (<150)
[2017-10-23 05:41] LABS: DIRECT LDL 147 mg/dL (<100)
[2017-10-23] MEDS: BUPROPION HCL 75 MG TABLET PO SCH ×2 (12:01→21:52)
[2017-10-23] MEDS: SULFAMETHOXAZOLE/TRIMETHOPRIM 800-160 MG TABLET PO SCH ×2 (12:01→18:39)
[2017-10-23] MEDS: ASPIRIN 81 MG TABLET, CHEWABLE PO SCH ×2 (12:01→21:52)
[2017-10-23] MEDS: MEMANTINE HCL 10 MG TABLET PO SCH (12:02)
[2017-10-23] MEDS: CHOLECALCIFEROL (D3) 1,000 UNIT TABLET PO SCH (12:02)
[2017-10-23] MEDS: LEVETIRACETAM ORAL SOLN 500 MG/5 ML UDCUP PO SCH ×2 (12:02→21:52)
[2017-10-23] MEDS: ENOXAPARIN SODIUM INJ 40 MG/0.4 ML DISP.SYRIN SUBCUT SCH (12:02)
[2017-10-23] MEDS: MULTIVITAMINS W-IRON TABLET, CHEWABLE PO SCH (12:13)
[2017-10-23] MEDS ORDERED: ACETAMINOPHEN 325 MG TABLET PO PRN (15:32)
[2017-10-23] MEDS ORDERED: ACETAMINOPHEN 325 MG TABLET ONE (15:53)
--- NOTE | 2017-10-23 16:32 | PDOC PROGRESS REPORT ---
Subjective Progress Note for:: 10/23/17 Subjective:: The patient is an 87 year old female with past medical history significant for advanced dementia, CVA with residual Rt side deficits, hyperlipidemia, hypothyroidism, COPD, and GERD who was admitted on 10/19/17 with seizure-like activity and worsening right-sided facial droop. The patient was seen on morning rounds with her son-in-law present. She was initially found sleeping; but woke easily when I said her name. She reported that my cool hands "feel good," but would not answer any further questions or follow commands. Per nursing, the patient has been more alert and cooperative today. I spoke with the patient's sons this afternoon. Wallacepalomo CarterMaureen is the primary houseperson. We discussed that multiple factors may be contributing to her increased fatigue (recent CVA, recent seizure activity, antiseizure medications, urinary tract infection/dehydration, unfamiliar hospital environment, natural progression of dementia). They expressed a desire that the patient be initially referred to acute rehabilitation and then returned to the [facility]. They are agreeable to meeting with palliative care; but at this time decline hospice referral. Reason For Visit: STROKE/TIA. NEW ONSET SEIZURE Physical Exam Vital Signs: Temp Pulse Resp BP Pulse Ox 98.3 F 62 14 136/47 H 98 10/23/17 12:19 10/23/17 14:00 10/23/17 12:19 10/23/17 12:19 10/23/17 12:19 Intake & Output 10/22/17 10/23/17 10/24/17 06:59 06:59 06:59 Intake Total 221 120 5 Balance 221 120 5 Weight 54.8 kg 55.6 kg General appearance: PRESENT: no acute distress, cooperative, well-developed, well-nourished Head exam: PRESENT: atraumatic, normocephalic Eye exam: PRESENT: conjunctiva pink, EOMI, PERRLA. ABSENT: scleral icterus Ear exam: PRESENT: normal external ear exam Mouth exam: PRESENT: moist, tongue midline Neck exam: ABSENT: carotid bruit, JVD, lymphadenopathy, thyromegaly Respiratory exam: PRESENT: clear to auscultation oksana. ABSENT: rales, rhonchi, wheezes Cardiovascular exam: PRESENT: RRR. ABSENT: diastolic murmur, rubs, systolic murmur Pulses: PRESENT: normal dorsalis pedis pul Vascular exam: PRESENT: normal capillary refill GI/Abdominal exam: PRESENT: normal bowel sounds, soft. ABSENT: distended, guarding, mass, organolmegaly, rebound, tenderness Rectal exam: PRESENT: deferred Extremities exam: PRESENT: full ROM. ABSENT: calf tenderness, clubbing, pedal edema Neurological exam: PRESENT: alert, awake, oriented to person. ABSENT: oriented to place, oriented to time, oriented to situation, CN II-XII grossly intact - Right facial droop; right upper extremity inattention, decreased strength right upper and lower extremity, motor sensory deficit Psychiatric exam: PRESENT: appropriate affect, normal mood. ABSENT: homicidal ideation, suicidal ideation Skin exam: PRESENT: dry, intact, warm. ABSENT: cyanosis, rash Results Laboratory Results: 10/21/17 04:28 10/22/17 07:05 10/23/17 04:16 Triglycerides 126 Cholesterol 226.26 H LDL Cholesterol Direct 147 H VLDL Cholesterol 25.0 HDL Cholesterol 44 Impressions: Chest X-Ray 10/19/17 00:00 IMPRESSION: NO ACUTE RADIOGRAPHIC FINDING IN THE CHEST. Head CT 10/19/17 00:00 IMPRESSION: Stable CT appearance of the brain demonstrating multifocal encephalomalacia on the basis of chronic post ischemic injury. Background of microvascular ischemic changes. No evidence of acute intracranial hemorrhage or infarct. EVIDENCE OF ACUTE STROKE: NO. Brain MRI with MRA 10/20/17 00:00 IMPRESSION: Marked microvascular ischemia and old infarcts. Acute infarct as an extension of the old left parietal infarct. EVIDENCE OF ACUTE STROKE: Yes LEFT MCA Head MRI 10/20/17 00:00 IMPRESSION: Marked microvascular ischemia and old infarcts. Acute infarct as an extension of the old left parietal infarct. EVIDENCE OF ACUTE STROKE: Yes LEFT MCA Assessment & Plan - Diagnosis (1) CVA (cerebral vascular accident) Qualifiers: CVA mechanism: unspecified Qualified Code(s): I63.9 - Cerebral infarction, unspecified Is this a current diagnosis for this admission?: Yes Plan: Patient has a PMH of CVA 6 years ago; patient was admitted following new onset seizure-like activity and worsening right side deficits. Head CT negative for hemorrhagic stroke. MRI/MRA shows acute infarct as an extension of the old left parietal infarct. Echocardiogram and Carotid Dopplers are pending. Hemoglobin A1c is 5.6%. Lipid panel shows elevated LDL but otherwise appropriate. The patient was admitted to [facility] on continuous cardiac telemetry; patient is refusing telemetry. No abnormal rhythms were observed while on monitoring. She is placed on daily aspirin and statin therapy. PT/OT/ST evaluations. Recommendations are for skilled rehabilitation at discharge with total feet of pured diet at each meal. Family have advised that they are not interested in pursuing PEG. Family request patient be discharged to acute rehabilitation. Paliative Care is consulted. (2) Dementia Qualifiers: Dementia type: unspecified type Is this a current diagnosis for this admission?: Yes Plan: History of dementia; now complicated by worsening right-sided deficits secondary to CVA. Continue home dose Namenda and Aricept. Patient previously a resident of [facility]; may benefit from increased level of supervision at discharge. Anticipate need for short-term rehabilitation at minimum. Supportive care; provide for patient safety. (3) Hypothyroidism (acquired) Is this a current diagnosis for this admission?: Yes Plan: Last TSH from February 2017 is appropriate. Continue home dose of levothyroxine. (4) New onset seizure Is this a current diagnosis for this admission?: Yes Plan: EEG is completed; results are pending. Continue oral Keppra. Discussed with family members that following new onset seizure related to CVA, recommendations are to reevaluate need for continued antiseizure medications periodically. Given the patient's age, advanced dementia, and other comorbidities it would be reasonable to discuss with her primary care provider/ palliative care provider early cessation of medication, especially should the patient experience side effects of reduced appetite, sedation, etc. that negatively affect the quality of her life. Seizure precautions. (5) Generalized weakness Is this a current diagnosis for this admission?: Yes Plan: PT/OT evaluations; recommendations for acute rehabilitation at discharge. Encourage mobility; fall precautions. (6) Urinary tract infection Qualifiers: Urinary tract infection type: acute cystitis Hematuria presence: with hematuria Qualified Code(s): N30.01 - Acute cystitis with hematuria Is this a current diagnosis for this admission?: Yes Plan: Same day ED visit for generalized weakness/fall with urinalysis positive for nitrites. Urine culture with ESBL E. coli. She is placed on oral Bactrim. - Time Time Spent with patient: 35 or more minutes Anticipated discharge: Acute Rehab Within: when bed available
[2017-10-23] MEDS: MIRTAZAPINE 15 MG TABLET PO SCH (21:52)
[2017-10-23] MEDS: ATORVASTATIN CALCIUM 80 MG TABLET PO SCH (21:52)
[2017-10-23] MEDS: DONEPEZIL HCL 5 MG TABLET PO SCH (21:52)
[2017-10-24] MEDS: LEVOTHYROXINE SODIUM 0.05 MG TABLET PO SCH (05:25)
[2017-10-24] MEDS: ENOXAPARIN SODIUM INJ 40 MG/0.4 ML DISP.SYRIN SUBCUT SCH (11:12)
[2017-10-24] MEDS: ASPIRIN 81 MG TABLET, CHEWABLE PO SCH ×2 (11:13→22:17)
[2017-10-24] MEDS: LEVETIRACETAM ORAL SOLN 500 MG/5 ML UDCUP PO SCH ×2 (11:13→22:17)
[2017-10-24] MEDS: SULFAMETHOXAZOLE/TRIMETHOPRIM 800-160 MG TABLET PO SCH ×2 (11:13→17:43)
[2017-10-24] MEDS: MULTIVITAMINS W-IRON TABLET, CHEWABLE PO SCH (11:14)
[2017-10-24] MEDS: BUPROPION HCL 75 MG TABLET PO SCH ×2 (11:14→22:16)
[2017-10-24] MEDS: MEMANTINE HCL 10 MG TABLET PO SCH (11:14)
[2017-10-24] MEDS: CHOLECALCIFEROL (D3) 1,000 UNIT TABLET PO SCH (11:14)
--- NOTE | 2017-10-24 14:37 | RADIOLOGY REPORT (SQ) ---
EXAM DESCRIPTION: CAROTID DOPPLER COMPLETED DATE/TIME: 10/24/2017 1:52 pm REASON FOR STUDY: CVA COMPARISON: CT brain 10/19/2017 MRI brain 10/20/2017 TECHNIQUE: Grayscale ultrasound, Doppler velocity and spectra, and color Doppler images acquired of the extra-cranial carotid and vertebral arteries. Images stored on PACS. LIMITATIONS: None. FINDINGS: RIGHT CAROTID CCA Velocities: Within normal limits. ICA Velocities Peak systolic 0.33 m/s. End diastolic 0.08 m/s. Proximal ICA/CCA peak systolic ratio 2.0. Calcific plaque at the right carotid bifurcation without flow significant stenosis by velocity criter ia. LEFT CAROTID CCA Velocities: Within normal limits. ICA Velocities Peak systolic 0.37 m/s. End diastolic 0.07 m/s. Proximal ICA/CCA peak systolic ratio 0.7. Calcific plaque at the left carotid bifurcation without flow significant stenosis by velocity criteri a VERTEBRAL ARTERIES: Antegrade flow. Normal waveforms. SUBCLAVIAN ARTERIES: Not evaluated OTHER: No other significant finding. IMPRESSION: No flow significant internal carotid artery stenosis at the carotid bifurcations by [place] criteria. COMMENT: Quality ID #[id number]: Velocity criteria are extrapolated from the diameter data as defined by t he Society of Radiologists in Ultrasound Consensus Conference. Radiology 2003: 229; 340-346. TECHNICAL DOCUMENTATION: JOB ID: [id number] [employer]- All Rights Reserved Reading location - IP/workstation name: [email or web address]
--- NOTE | 2017-10-24 16:37 | XCELERA REPORT ---
[address] [address] Transthoracic Echocardiogram Report Name: BABS ONTIVEROS Age: 87 yrs Gender: Female : 1930 Patient Status: Inpatient Patient Location: [address] [place] [address] Study Date: 10/24/2017 09:14 AM Height: 62 in Weight: 120 lb BSA: 1.5 m2 Procedure: A two-dimensional transthoracic echocardiogram with color flow and Doppler was performed. The study was technically difficult with many images being suboptimal in quality. Study Quality: Technically suboptimal. Reason For Study: CVA History: CVA. Ordering Physician: HEDY ELIZABETH Performed By: Mary Guan Interpretation Summary There is no obvious cardiac source of embolus noted on this transthoracic echocardiogram. Follow-up with a [facility] is suggested if cardiac source is still suspected. The left ventricle is normal in size. There is normal left ventricular wall thickness. LV EF is 60% Left ventricular systolic function is normal. Doppler measurements suggest impaired left ventricular relaxation, which is associated with grade I/IV or mild diastolic dysfunction The left ventricular wall motion is normal. There is no thrombus. The right ventricle is normal in size and function. The right atrium is normal. The left atrial size is normal. The interatrial septum is intact with no evidence for an atrial septal defect. Lipomatous hypertrophy of the interatrial septum is noted. There is no mitral valve stenosis. There is mild mitral valve prolapse. There is no vegetation seen on the mitral valve. There is a mild amount of mitral regurgitation The aortic valve is trileaflet. The aortic valve opens well. The aortic valve is mildly calcified There is no aortic valve stenosis There is no LVOT obstruction. No aortic regurgitation is present. There is no tricuspid stenosis. There is a trace amount of tricuspid regurgitation Right ventricular systolic pressure is normal. RVSP is 23 to 28 mm of Hg ,with RA mean of 5 to 10. There is no pulmonic valvular stenosis. There is a trace amount of pulmonic regurgitation There is no pericardial effusion. There is no obvious cardiac source of embolus noted on this transthoracic echocardiogram. Follow-up with a [facility] is suggested if cardiac source is still suspected MMode/2D Measurements & Calculations RVDd: 2.7 cm LVIDd: 4.5 cm FS: 37.6 % Ao root diam: 2.5 cm IVSd: 0.69 cm LVIDs: 2.8 cm EDV(Teich): 92.0 ml LVPWd: 0.73 cm ESV(Teich): 29.6 ml Ao root area: 4.9 cm2 EF(Teich): 67.8 % LA dimension: 2.8 cm Doppler Measurements & Calculations MV E max josh: MV P1/2t max josh: Ao V2 max: LV V1 max P.7 cm/sec 63.2 cm/sec 103.2 cm/sec 1.8 mmHg MV A max josh: MV P1/2t: 79.0 msec Ao max PG: LV V1 max: 103.7 cm/sec 4.3 mmHg 67.6 cm/sec MV E/A: 0.60 MVA(P1/2t): 2.8 cm2 MV dec slope: 234.3 cm/sec2 MV dec time: 0.28 sec PA V2 max: PI end-d josh: TR max josh: 53.3 cm/sec 99.1 cm/sec 209.6 cm/sec PA max P.1 mmHg TR max P.6 mmHg Left Ventricle The left ventricle is normal in size. There is normal left ventricular wall thickness. LV EF is 60%. Left ventricular systolic function is normal. Doppler measurements suggest impaired left ventricular relaxation, which is associated with grade I/IV or mild diastolic dysfunction. The left ventricular wall motion is normal. There is no thrombus. There is no ventricular septal defect visualized. Right Ventricle The right ventricle is normal in size and function. Atria The right atrium is normal. The left atrial size is normal. The interatrial septum is intact with no evidence for an atrial septal defect. Lipomatous hypertrophy of the interatrial septum is noted. Mitral Valve There is mild to moderate mitral annular calcification. There is mild mitral valve prolapse. There is no vegetation seen on the mitral valve. There is no mitral valve stenosis. There is a mild amount of mitral regurgitation. Aortic Valve The aortic valve is trileaflet. The aortic valve opens well. The aortic valve is mildly calcified. There is no aortic valvular vegetation. There is no aortic valve stenosis. There is no LVOT obstruction. No aortic regurgitation is present. Tricuspid Valve There is no tricuspid stenosis. There is a trace amount of tricuspid regurgitation. Right ventricular systolic pressure is normal. RVSP is 23 to 28 mm of Hg ,with RA mean of 5 to 10. Pulmonic Valve There is no pulmonic valvular stenosis. There is a trace amount of pulmonic regurgitation. Great Vessels The aortic root is normal size. Effusions There is no pericardial effusion. : HEDY ELIZABETH > Clari Walker
--- NOTE | 2017-10-24 19:45 | PDOC PROGRESS REPORT ---
Subjective Progress Note for:: 10/24/17 Subjective:: BABS ONTIVEROS is a 87 y.o. F who presented to [facility] with stroke-like symptoms (R facial droop, R sided weakness) and new onset seizure. Admitted to hospitalist service for stroke/seizure workup. Upon evaluation, the patient will open her eyes to painful stimuli. She will appropriately state that she is cold when covers are removed but she will not answer direct questions. Additionally, she does not follow commands. RUE withdraw to pain only, +sensation. RLE 2/5 strength. R facial droop. PERRA. The patient's family has expressed an interest in palliative care. Plan for Katrina Moreira NP to meet with patient's sons. Reason For Visit: STROKE/TIA. NEW ONSET SEIZURE Physical Exam Vital Signs: Temp Pulse Resp BP Pulse Ox 98.2 F 54 L 18 140/52 H 97 10/24/17 16:00 10/24/17 16:00 10/24/17 16:00 10/24/17 16:00 10/24/17 16:00 Intake & Output 10/23/17 10/24/17 10/25/17 06:59 06:59 06:59 Intake Total 120 715 60 Balance 120 715 60 Weight 55.6 kg 55.2 kg General appearance: PRESENT: no acute distress, thin Eye exam: PRESENT: conjunctiva pink, PERRLA Mouth exam: PRESENT: moist Teeth exam: PRESENT: poor dentation Neck exam: PRESENT: full ROM Respiratory exam: PRESENT: clear to auscultation oksana, symmetrical, unlabored Cardiovascular exam: PRESENT: +S1, +S2 Pulses: PRESENT: normal radial pulses, normal dorsalis pedis pul Vascular exam: PRESENT: pallor GI/Abdominal exam: PRESENT: normal bowel sounds, soft. ABSENT: tenderness Rectal exam: PRESENT: deferred Extremities exam: ABSENT: full ROM - RUE w/d to pain. RLE 2/5 Musculoskeletal exam: ABSENT: ambulatory, full ROM Neurological exam: ABSENT: alert, awake, oriented to person, oriented to place, oriented to time, oriented to situation Skin exam: PRESENT: dry, intact, pallor Results Laboratory Results: 10/21/17 04:28 10/22/17 07:05 Impressions: Chest X-Ray 10/19/17 00:00 IMPRESSION: NO ACUTE RADIOGRAPHIC FINDING IN THE CHEST. Head CT 10/19/17 00:00 IMPRESSION: Stable CT appearance of the brain demonstrating multifocal encephalomalacia on the basis of chronic post ischemic injury. Background of microvascular ischemic changes. No evidence of acute intracranial hemorrhage or infarct. EVIDENCE OF ACUTE STROKE: NO. Brain MRI with MRA 10/20/17 00:00 IMPRESSION: Marked microvascular ischemia and old infarcts. Acute infarct as an extension of the old left parietal infarct. EVIDENCE OF ACUTE STROKE: Yes LEFT MCA Head MRI 10/20/17 00:00 IMPRESSION: Marked microvascular ischemia and old infarcts. Acute infarct as an extension of the old left parietal infarct. EVIDENCE OF ACUTE STROKE: Yes LEFT MCA Carotid Doppler Study 10/24/17 00:00 IMPRESSION: No flow significant internal carotid artery stenosis at the carotid bifurcations by velocity criteria. Status: Imported from PACS Assessment & Plan - Diagnosis (1) CVA (cerebral vascular accident) Qualifiers: CVA mechanism: unspecified Qualified Code(s): I63.9 - Cerebral infarction, unspecified Is this a current diagnosis for this admission?: Yes Plan: Patient has a PMH of CVA 6 years ago; patient was admitted following new onset seizure-like activity and worsening right side deficits. Head CT negative for hemorrhagic stroke. MRI/MRA shows acute infarct as an extension of the old left parietal infarct. Echocardiogram shows LVEF 70%, no evidence of cardiac thrombus Carotid Dopplers negative Hemoglobin A1c is 5.6%. Lipid panel shows elevated LDL but otherwise appropriate. The patient was admitted to [facility] on continuous cardiac telemetry; patient is refusing telemetry. No abnormal rhythms were observed while on monitoring. Continue aspirin and statin therapy. PT/OT/speech therapy evaluations. Recommendations are for skilled rehabilitation at discharge with assistance required at each meal. Family have been advised about feeding options and they are not interested in pursuing PEG. Family request patient be discharged to acute rehabilitation. Paliative Care is consulted. (2) Dementia Qualifiers: Dementia type: unspecified type Is this a current diagnosis for this admission?: Yes Plan: History of dementia; Complicated by CVA and worsening right-sided deficits Continue home dose Namenda and Aricept. Patient previously a resident of [facility]; may benefit from increased level of supervision at discharge. Anticipate need for short-term rehabilitation at minimum. Supportive care; provide for patient safety. (3) New onset seizure Is this a current diagnosis for this admission?: Yes Plan: EEG is completed; results are pending. Continue oral Keppra. Given the patient's age, advanced dementia, and other comorbidities it would be reasonable to discuss with her primary care provider/palliative care provider early cessation of medication, especially should the patient experience side effects of reduced appetite, sedation, etc. that negatively affect the quality of her life. Continue seizure precautions. (4) Urinary tract infection Qualifiers: Urinary tract infection type: acute cystitis Hematuria presence: with hematuria Qualified Code(s): N30.01 - Acute cystitis with hematuria Is this a current diagnosis for this admission?: Yes Plan: Same day ED visit for generalized weakness/fall with urinalysis positive for nitrites. Urine culture with ESBL E. coli. She is placed on oral Bactrim. (5) Generalized weakness Is this a current diagnosis for this admission?: Yes Plan: PT/OT evaluations; recommendations for acute rehabilitation at discharge. Encourage mobility; fall precautions. (6) Hypothyroidism (acquired) Is this a current diagnosis for this admission?: Yes Plan: Last TSH from February 2017 is appropriate. Continue home dose of levothyroxine. - Time Time Spent with patient: 15-24 minutes Medications reviewed and adjusted accordingly: Yes Anticipated discharge: Acute Rehab Within: within 48 hours - Inpatient Certification Based on my medical assessment, after consideration of the patient's comorbidities, presenting symptoms, or acuity I expect that the services needed warrant INPATIENT care.: Yes I certify that my determination is in accordance with my understanding of Medicare's requirements for reasonable and necessary INPATIENT services [42 CFR 412.3e].: Yes Medical Necessity: Risk of Complication if Not Cared For in Hospital - Plan Summary Plan Summary: plan for palliative care to meet with family.
[2017-10-24] MEDS: ATORVASTATIN CALCIUM 80 MG TABLET PO SCH (22:16)
[2017-10-24] MEDS: MIRTAZAPINE 15 MG TABLET PO SCH (22:16)
[2017-10-24] MEDS: DONEPEZIL HCL 5 MG TABLET PO SCH (22:17)
--- NOTE | 2017-10-24 22:46 | Progress Note ---
Provider Note Provider Note: Palliative care follow up visit 10/24/17 10:30 AM Follow up visit attempted. Patient is in bed with no noted distress. She is sleeping, awakens easily. She says only a few words, answers no to questions about pain. She covers herself back up with blankets when I try to examine her. She remains very frail and does not want to communicate today. HEENT normal with moist oral mucosa, facial symmetry in tact with limited exam. Speech clear with few words she spoke. Neck supple. Breath sounds clear and unlabored. Heart sounds regular. No edema noted. Abd soft, patient pushed my hand away but not as if in pain but to replace blankets. I have not received return call from patient's son will try again to reach him to meet with him tomorrow. I understand that he wants to have patient moved to SNF for rehab and possible terminal computer operator care. Will talk with him tomorrow about possibility of palliative care following patient in facility. If she does not improve in rehab, she may be appropriate for hospice support too. Will follow.
[2017-10-25] MEDS: LEVOTHYROXINE SODIUM 0.05 MG TABLET PO SCH (05:57)
[2017-10-25] MEDS: ENOXAPARIN SODIUM INJ 40 MG/0.4 ML DISP.SYRIN SUBCUT SCH (10:57)
[2017-10-25] MEDS: SULFAMETHOXAZOLE/TRIMETHOPRIM 800-160 MG TABLET PO SCH ×2 (10:58→16:56)
[2017-10-25] MEDS: BUPROPION HCL 75 MG TABLET PO SCH ×2 (10:58→22:09)
[2017-10-25] MEDS: MULTIVITAMINS W-IRON TABLET, CHEWABLE PO SCH (10:58)
[2017-10-25] MEDS: LEVETIRACETAM ORAL SOLN 500 MG/5 ML UDCUP PO SCH ×2 (10:58→22:09)
[2017-10-25] MEDS: CHOLECALCIFEROL (D3) 1,000 UNIT TABLET PO SCH (10:58)
[2017-10-25] MEDS: ASPIRIN 81 MG TABLET, CHEWABLE PO SCH ×2 (10:58→22:09)
[2017-10-25] MEDS: MEMANTINE HCL 10 MG TABLET PO SCH (10:58)
[2017-10-25] MEDS: ATORVASTATIN CALCIUM 80 MG TABLET PO SCH (22:09)
[2017-10-25] MEDS: DONEPEZIL HCL 5 MG TABLET PO SCH (22:09)
[2017-10-25] MEDS: MIRTAZAPINE 15 MG TABLET PO SCH (22:09)
[2017-10-26] MEDS: LEVOTHYROXINE SODIUM 0.05 MG TABLET PO SCH (05:05)
[2017-10-26] MEDS: MEMANTINE HCL 10 MG TABLET PO SCH (10:50)
[2017-10-26] MEDS: ENOXAPARIN SODIUM INJ 40 MG/0.4 ML DISP.SYRIN SUBCUT SCH (10:50)
[2017-10-26] MEDS: ASPIRIN 81 MG TABLET, CHEWABLE PO SCH ×2 (10:50→23:34)
[2017-10-26] MEDS: BUPROPION HCL 75 MG TABLET PO SCH ×2 (10:50→23:35)
[2017-10-26] MEDS: SULFAMETHOXAZOLE/TRIMETHOPRIM 800-160 MG TABLET PO SCH ×2 (10:50→18:53)
[2017-10-26] MEDS: CHOLECALCIFEROL (D3) 1,000 UNIT TABLET PO SCH (10:50)
[2017-10-26] MEDS: MULTIVITAMINS W-IRON TABLET, CHEWABLE PO SCH (10:51)
[2017-10-26] MEDS: LEVETIRACETAM ORAL SOLN 500 MG/5 ML UDCUP PO SCH ×2 (10:51→23:36)
--- NOTE | 2017-10-26 18:42 | PDOC PROGRESS REPORT ---
Subjective Progress Note for:: 10/26/17 Subjective:: The patient is an 87 year old female with past medical history significant for advanced dementia, CVA with residual Rt side deficits, hyperlipidemia, hypothyroidism, COPD, and GERD who was admitted on 10/19/17 with seizure-like activity and worsening right-sided facial droop. The patient was seen on morning rounds; unfortunately, no family members were present at this time. She is initially found sleeping, but woke easily when I said her name. She stated that she was feeling well today and asks me to assist her with drinking some water. She denies fever, chills, headache, chest pain, shortness of breath, abdominal pain, nausea and vomiting. She has no complaints; nursing has no concerns. Reason For Visit: STROKE/TIA. NEW ONSET SEIZURE Physical Exam Vital Signs: Temp Pulse Resp BP Pulse Ox 98.4 F 79 14 119/55 L 94 10/26/17 12:04 10/26/17 12:04 10/26/17 12:04 10/26/17 12:04 10/26/17 12:04 Intake & Output 10/25/17 10/26/17 10/27/17 06:59 06:59 06:59 Intake Total 60 15 Balance 60 15 Weight 54.1 kg 53.2 kg General appearance: PRESENT: no acute distress, thin, well-developed Head exam: PRESENT: atraumatic, normocephalic Eye exam: PRESENT: conjunctiva pink, EOMI, PERRLA. ABSENT: scleral icterus Ear exam: PRESENT: normal external ear exam Mouth exam: PRESENT: moist, tongue midline Neck exam: ABSENT: carotid bruit, JVD, lymphadenopathy, thyromegaly Respiratory exam: PRESENT: clear to auscultation oksana, symmetrical, unlabored. ABSENT: rales, rhonchi, wheezes Cardiovascular exam: PRESENT: RRR, +S1, +S2. ABSENT: diastolic murmur, rubs, systolic murmur Pulses: PRESENT: normal dorsalis pedis pul Vascular exam: PRESENT: normal capillary refill GI/Abdominal exam: PRESENT: normal bowel sounds, soft. ABSENT: distended, guarding, mass, organolmegaly, rebound, tenderness Rectal exam: PRESENT: deferred Extremities exam: PRESENT: full ROM. ABSENT: calf tenderness, clubbing, pedal edema Musculoskeletal exam: ABSENT: ambulatory Neurological exam: PRESENT: alert, awake, oriented to person, other - at baseline mentation; persistent right side deficits. ABSENT: oriented to place, oriented to time, oriented to situation, motor sensory deficit Psychiatric exam: PRESENT: appropriate affect, normal mood. ABSENT: homicidal ideation, suicidal ideation Skin exam: PRESENT: dry, intact, warm. ABSENT: cyanosis, rash Results Laboratory Results: 10/21/17 04:28 10/22/17 07:05 Impressions: Chest X-Ray 10/19/17 00:00 IMPRESSION: NO ACUTE RADIOGRAPHIC FINDING IN THE CHEST. Head CT 10/19/17 00:00 IMPRESSION: Stable CT appearance of the brain demonstrating multifocal encephalomalacia on the basis of chronic post ischemic injury. Background of microvascular ischemic changes. No evidence of acute intracranial hemorrhage or infarct. EVIDENCE OF ACUTE STROKE: NO. Brain MRI with MRA 10/20/17 00:00 IMPRESSION: Marked microvascular ischemia and old infarcts. Acute infarct as an extension of the old left parietal infarct. EVIDENCE OF ACUTE STROKE: Yes LEFT MCA Head MRI 10/20/17 00:00 IMPRESSION: Marked microvascular ischemia and old infarcts. Acute infarct as an extension of the old left parietal infarct. EVIDENCE OF ACUTE STROKE: Yes LEFT MCA Carotid Doppler Study 10/24/17 00:00 IMPRESSION: No flow significant internal carotid artery stenosis at the carotid bifurcations by velocity criteria. Assessment & Plan - Diagnosis (1) CVA (cerebral vascular accident) Qualifiers: CVA mechanism: unspecified Qualified Code(s): I63.9 - Cerebral infarction, unspecified Is this a current diagnosis for this admission?: Yes Plan: Patient has a PMH of CVA 6 years ago; patient was admitted following new onset seizure-like activity and worsening right side deficits. Head CT negative for hemorrhagic stroke. MRI/MRA shows acute infarct as an extension of the old left parietal infarct. Echocardiogram benign; normal ejection fraction and without evidence of cardiac source of embolus. Carotid Dopplers are negative for hemodynamically significant stenosis. Hemoglobin A1c is 5.6%. Lipid panel shows elevated LDL but otherwise appropriate. The patient was admitted to [facility] on continuous cardiac telemetry; patient is refusing telemetry. No abnormal rhythms were observed while on monitoring. She is placed on daily aspirin and statin therapy. PT/OT/ST evaluations. Recommendations are for skilled rehabilitation at discharge with total feet of pured diet at each meal. Family have advised that they are not interested in pursuing PEG. Family request patient be discharged to acute rehabilitation. Paliative Care is consulted. Awaiting insurance prior authorization for acute rehabilitation; stable for discharge once bed placement has been arranged. (2) Dementia Qualifiers: Dementia type: unspecified type Is this a current diagnosis for this admission?: Yes Plan: History of dementia; now complicated by worsening right-sided deficits secondary to CVA. Continue home dose Namenda and Aricept. Patient previously a resident of [facility]; current plan is for the patient to go to short-term rehabilitation for physical therapy prior to return to the [facility]. Supportive care; provide for patient safety. (3) Hypothyroidism (acquired) Is this a current diagnosis for this admission?: Yes Plan: Last TSH from February 2017 is appropriate. Continue home dose of levothyroxine. (4) New onset seizure Is this a current diagnosis for this admission?: Yes Plan: Continue oral Keppra. Should reevaluate clinical indications at 1 month, 3 months, in 1 year. Given the patient's age, advanced dementia, and other comorbidities it would be reasonable to consider early cessation of medication, especially should the patient experience side effects of reduced appetite, sedation, etc. that negatively affect the quality of her life. Seizure precautions. (5) Generalized weakness Is this a current diagnosis for this admission?: Yes Plan: PT/OT evaluations; recommendations for acute rehabilitation at discharge. Encourage mobility; fall precautions. (6) Urinary tract infection Qualifiers: Urinary tract infection type: acute cystitis Hematuria presence: with hematuria Qualified Code(s): N30.01 - Acute cystitis with hematuria Is this a current diagnosis for this admission?: Yes Plan: Same day ED visit for generalized weakness/fall with urinalysis positive for nitrites. Urine culture with ESBL E. coli. She is placed on oral Bactrim; Currently on day #7 of 10. - Time Time Spent with patient: Less than 15 minutes Anticipated discharge: Acute Rehab Within: when bed available
[2017-10-26] MEDS: DONEPEZIL HCL 5 MG TABLET PO SCH (23:33)
[2017-10-26] MEDS: ATORVASTATIN CALCIUM 80 MG TABLET PO SCH (23:35)
[2017-10-26] MEDS: MIRTAZAPINE 15 MG TABLET PO SCH (23:35)
[2017-10-27] MEDS: LEVOTHYROXINE SODIUM 0.05 MG TABLET PO SCH (05:23)
[2017-10-27] MEDS: MULTIVITAMINS W-IRON TABLET, CHEWABLE PO SCH (09:57)
[2017-10-27] MEDS: MEMANTINE HCL 10 MG TABLET PO SCH (09:58)
[2017-10-27] MEDS: CHOLECALCIFEROL (D3) 1,000 UNIT TABLET PO SCH (09:58)
[2017-10-27] MEDS: BUPROPION HCL 75 MG TABLET PO SCH ×2 (09:58→22:17)
[2017-10-27] MEDS: SULFAMETHOXAZOLE/TRIMETHOPRIM 800-160 MG TABLET PO SCH ×2 (09:58→17:17)
[2017-10-27] MEDS: LEVETIRACETAM ORAL SOLN 500 MG/5 ML UDCUP PO SCH ×2 (09:59→22:17)
[2017-10-27] MEDS: ASPIRIN 81 MG TABLET, CHEWABLE PO SCH ×2 (09:59→22:16)
[2017-10-27] MEDS: ENOXAPARIN SODIUM INJ 40 MG/0.4 ML DISP.SYRIN SUBCUT SCH (10:00)
--- NOTE | 2017-10-27 15:37 | PDOC PROGRESS REPORT ---
Subjective Progress Note for:: 10/27/17 Subjective:: The patient is an 87 year old female with past medical history significant for advanced dementia, CVA with residual Rt side deficits, hyperlipidemia, hypothyroidism, COPD, and GERD who was admitted on 10/19/17 with seizure-like activity and worsening right-sided facial droop. The patient was seen on morning rounds; unfortunately, no family members were present at this time. She is initially found sleeping, and arouses slightly when I say her name. She says morning, but does not open her eyes or answer further questions. Per nursing, the patient woke easily earlier this morning and ate 100% of her breakfast with assistance. She appears to be comfortable and is not in any apparent distress. Nursing has no concerns. Patient is stable for discharge to SNF when bed is available. Recommend palliative/hospice services follow the patient after discharge. Reason For Visit: STROKE/TIA. NEW ONSET SEIZURE Physical Exam Vital Signs: Temp Pulse Resp BP Pulse Ox 97.8 F 66 16 124/58 L 95 10/27/17 11:39 10/27/17 14:00 10/27/17 11:39 10/27/17 11:39 10/27/17 11:39 Intake & Output 10/26/17 10/27/17 10/28/17 06:59 06:59 06:59 Intake Total 15 206 Balance 15 206 Weight 53.2 kg 54.2 kg General appearance: PRESENT: no acute distress, thin, well-developed Head exam: PRESENT: atraumatic, normocephalic Eye exam: PRESENT: conjunctiva pink. ABSENT: scleral icterus Ear exam: PRESENT: normal external ear exam Mouth exam: PRESENT: moist, tongue midline Neck exam: ABSENT: carotid bruit, JVD, lymphadenopathy, thyromegaly Respiratory exam: PRESENT: clear to auscultation oksana, symmetrical, unlabored. ABSENT: rales, rhonchi, wheezes Cardiovascular exam: PRESENT: RRR, +S1, +S2. ABSENT: diastolic murmur, rubs, systolic murmur Pulses: PRESENT: normal dorsalis pedis pul Vascular exam: PRESENT: normal capillary refill GI/Abdominal exam: PRESENT: normal bowel sounds, soft. ABSENT: distended, guarding, mass, organolmegaly, rebound, tenderness Rectal exam: PRESENT: deferred Extremities exam: ABSENT: calf tenderness, clubbing, pedal edema Neurological exam: PRESENT: oriented to person, other - Arousable; at baseline mentation. Persistent right-sided deficits r/t CVA; RUE>RLE. ABSENT: oriented to place, oriented to time, oriented to situation, motor sensory deficit Psychiatric exam: PRESENT: appropriate affect, normal mood. ABSENT: homicidal ideation, suicidal ideation Skin exam: PRESENT: dry, intact, warm. ABSENT: cyanosis, rash Results Laboratory Results: 10/21/17 04:28 10/22/17 07:05 Impressions: Chest X-Ray 10/19/17 00:00 IMPRESSION: NO ACUTE RADIOGRAPHIC FINDING IN THE CHEST. Head CT 10/19/17 00:00 IMPRESSION: Stable CT appearance of the brain demonstrating multifocal encephalomalacia on the basis of chronic post ischemic injury. Background of microvascular ischemic changes. No evidence of acute intracranial hemorrhage or infarct. EVIDENCE OF ACUTE STROKE: NO. Brain MRI with MRA 10/20/17 00:00 IMPRESSION: Marked microvascular ischemia and old infarcts. Acute infarct as an extension of the old left parietal infarct. EVIDENCE OF ACUTE STROKE: Yes LEFT MCA Head MRI 10/20/17 00:00 IMPRESSION: Marked microvascular ischemia and old infarcts. Acute infarct as an extension of the old left parietal infarct. EVIDENCE OF ACUTE STROKE: Yes LEFT MCA Carotid Doppler Study 10/24/17 00:00 IMPRESSION: No flow significant internal carotid artery stenosis at the carotid bifurcations by velocity criteria. Assessment & Plan - Diagnosis (1) CVA (cerebral vascular accident) Qualifiers: CVA mechanism: unspecified Qualified Code(s): I63.9 - Cerebral infarction, unspecified Is this a current diagnosis for this admission?: Yes Plan: Patient has a PMH of CVA 6 years ago; patient was admitted following new onset seizure-like activity and worsening right side deficits. Head CT negative for hemorrhagic stroke. MRI/MRA shows acute infarct as an extension of the old left parietal infarct. Echocardiogram benign; normal ejection fraction and without evidence of cardiac source of embolus. Carotid Dopplers are negative for hemodynamically significant stenosis. Hemoglobin A1c is 5.6%. Lipid panel shows elevated LDL but otherwise appropriate. No abnormal rhythms were observed while on telemetry. The patient was originally admitted to [facility] on continuous cardiac telemetry; now downgraded to medical floor. Continue aspirin and statin therapy. PT/OT/ST evaluations. Recommendations are for skilled rehabilitation at discharge with total feet of pured diet at each meal. The patient is observed to be quite somnolent; sleepy through most the day, but does wake easily. Will ask PT/OT to reevaluate appropriateness for acute rehabilitation. Family have advised that they are not interested in pursuing PEG. Paliative Care is consulted. Awaiting insurance prior authorization for acute rehabilitation; stable for discharge once bed placement has been arranged. (2) Dementia Qualifiers: Dementia type: unspecified type Is this a current diagnosis for this admission?: Yes Plan: History of dementia; now complicated by worsening right-sided deficits secondary to CVA. Continue home dose Namenda and Aricept. Patient previously a resident of [facility]; current plan is for the patient to go to short-term rehabilitation for physical therapy prior to return to the [facility]. Supportive care; provide for patient safety. (3) Hypothyroidism (acquired) Is this a current diagnosis for this admission?: Yes Plan: Last TSH from February 2017 is appropriate. Continue home dose of levothyroxine. (4) New onset seizure Is this a current diagnosis for this admission?: Yes Plan: Continue oral Keppra. Should reevaluate clinical indications at 1 month, 3 months, in 1 year. Given the patient's age, advanced dementia, and other comorbidities it would be reasonable to consider early cessation of medication, especially should the patient experience side effects of reduced appetite, sedation, etc. that negatively affect the quality of her life. Seizure precautions. (5) Urinary tract infection Qualifiers: Urinary tract infection type: acute cystitis Hematuria presence: with hematuria Qualified Code(s): N30.01 - Acute cystitis with hematuria Is this a current diagnosis for this admission?: Yes Plan: Same day ED visit for generalized weakness/fall with urinalysis positive for nitrites. Urine culture with ESBL E. coli. She is placed on oral Bactrim; Currently on day #8 of 10. (6) At risk for malnutrition Is this a current diagnosis for this admission?: Yes Plan: The patient is an elderly female with advanced dementia; admitted with low BMI of 21.9. Now with CVA resulting in right-sided neglect and inability to feed herself; requires total feeding assistance. Albumin 3.3. Registered dietitian has been consulted with implementation of their recommendations. Enlive twice daily with Magic cup at dinner. Continue multivitamin. Assistance for meals. - Time Time Spent with patient: 15-24 minutes Anticipated discharge: SNF, Acute Rehab - w/ Palliative Care referral Within: when bed available
[2017-10-27] MEDS: MIRTAZAPINE 15 MG TABLET PO SCH (22:16)
[2017-10-27] MEDS: DONEPEZIL HCL 5 MG TABLET PO SCH (22:17)
[2017-10-27] MEDS: ATORVASTATIN CALCIUM 80 MG TABLET PO SCH (22:17)
[2017-10-28] MEDS: LEVOTHYROXINE SODIUM 0.05 MG TABLET PO SCH (05:11)
[2017-10-28 05:24] LABS: HEMATOCRIT 38.5 % (36.0-47.0); HEMOGLOBIN 13.1 g/dL (12.0-15.5); MEAN CORPUSCULAR HEMOGLOBIN 28.6 pg (27.0-33.4); MEAN CORPUSCULAR HGB CONC 34.1 g/dL (32.0-36.0); MEAN CORPUSCULAR VOLUME 84 fl (80-97); PLATELET COUNT 189 10^3/uL (150-450); RED BLOOD COUNT 4.59 10^6/uL (3.72-5.28); RED CELL DISTRIBUTION WIDTH 13.6 % (11.5-14.0); WHITE BLOOD COUNT 9.5 10^3/uL (4.0-10.5)
[2017-10-28 05:55] LABS: ANION GAP 12 (5-19); BLOOD UREA NITROGEN 29 mg/dL (7-20); CARBON DIOXIDE 25 mmol/L (22-30); CHLORIDE 106 mmol/L (98-107); GLUCOSE 91 mg/dL (75-110); POTASSIUM 4.5 mmol/L (3.6-5.0)
[2017-10-28] MEDS: SULFAMETHOXAZOLE/TRIMETHOPRIM 800-160 MG TABLET PO SCH ×2 (11:40→17:42)
[2017-10-28] MEDS: ENOXAPARIN SODIUM INJ 40 MG/0.4 ML DISP.SYRIN SUBCUT SCH (11:40)
[2017-10-28] MEDS: MEMANTINE HCL 10 MG TABLET PO SCH (11:40)
[2017-10-28] MEDS: MULTIVITAMINS W-IRON TABLET, CHEWABLE PO SCH (11:40)
[2017-10-28] MEDS: LEVETIRACETAM ORAL SOLN 500 MG/5 ML UDCUP PO SCH ×2 (11:40→21:19)
[2017-10-28] MEDS: BUPROPION HCL 75 MG TABLET PO SCH ×2 (11:40→21:19)
[2017-10-28] MEDS: ASPIRIN 81 MG TABLET, CHEWABLE PO SCH ×2 (11:40→21:19)
[2017-10-28] MEDS: CHOLECALCIFEROL (D3) 1,000 UNIT TABLET PO SCH (11:40)
--- NOTE | 2017-10-28 17:01 | PDOC PROGRESS REPORT ---
Subjective Progress Note for:: 10/28/17 Subjective:: The patient is an 87 year old female with past medical history significant for advanced dementia, CVA with residual Rt side deficits, hyperlipidemia, hypothyroidism, COPD, and GERD who was admitted on 10/19/17 with seizure-like activity and worsening right-sided facial droop. The patient was seen on morning rounds; with her son, Иван (lives in [place] ), present. She is initially found sleeping, and arouses slightly when I say her name, but does not wake fully. Per nursing, the patient continues to wake easily but refuses to eat today. Иван reports that he is interested in discussing hospice services. He recognizes that his mother is declining and does not feel that she would want aggressive interventions. He does tell me that his brother, Wallace (lives in [place]) is not yet ready to pursue hospice. Wallace is not present at this time , so just he felt this would be a good opportunity for him to ask questions and become more informed so that when his brother has had more time to process this , they can make a smooth transition. We did discuss her continued somnolence, poor participation in physical therapy, and poor appetite. This could potentially be related to the Keppra started at the time of her CVA secondary to concurrent seizure-like activity versus her new baseline mental status. The patient's son understands the risk of discontinuing this medication (potential for repeat seizure) but does request that we begin weaning the medication to see if the patient becomes more alert. Otherwise, he has no new questions or concerns. Nursing has no concerns other than reduced p.o intake. Patient is stable for discharge to SNF when bed is available. Recommend palliative/hospice services follow the patient after discharge. Reason For Visit: STROKE/TIA. NEW ONSET SEIZURE Physical Exam Vital Signs: Temp Pulse Resp BP Pulse Ox 97.5 F 84 17 141/69 H 97 10/28/17 11:13 10/28/17 11:13 10/28/17 11:13 10/28/17 11:13 10/28/17 11:13 Intake & Output 10/27/17 10/28/17 10/29/17 06:59 06:59 06:59 Intake Total 206 476 Balance 206 476 Weight 54.2 kg 54.2 kg General appearance: PRESENT: no acute distress, thin, well-developed, well- nourished Head exam: PRESENT: atraumatic, normocephalic Eye exam: PRESENT: conjunctiva pink, PERRLA. ABSENT: scleral icterus Ear exam: PRESENT: normal external ear exam Mouth exam: PRESENT: moist, tongue midline Neck exam: ABSENT: carotid bruit, JVD, lymphadenopathy, thyromegaly Respiratory exam: PRESENT: clear to auscultation oksana, symmetrical, unlabored. ABSENT: rales, rhonchi, wheezes Cardiovascular exam: PRESENT: RRR, +S1, +S2. ABSENT: diastolic murmur, rubs, systolic murmur Pulses: PRESENT: normal dorsalis pedis pul Vascular exam: PRESENT: normal capillary refill GI/Abdominal exam: PRESENT: normal bowel sounds, soft. ABSENT: distended, guarding, mass, organolmegaly, rebound, tenderness Rectal exam: PRESENT: deferred Extremities exam: ABSENT: calf tenderness, clubbing, pedal edema Neurological exam: PRESENT: oriented to person, other - Somnolent; slightly arousable but does not wake fully. Persistent right-sided deficits related to CVA; RUE>RLE. ABSENT: oriented to place, oriented to time, oriented to situation Skin exam: PRESENT: dry, intact, warm. ABSENT: cyanosis, rash Results Laboratory Results: 10/28/17 04:10 10/28/17 04:10 10/28/17 10/28/17 04:10 04:10 WBC 9.5 RBC 4.59 Hgb 13.1 Hct 38.5 MCV 84 MCH 28.6 MCHC 34.1 RDW 13.6 Plt Count 189 Sodium 143.0 Potassium 4.5 Chloride 106 Carbon Dioxide 25 Anion Gap 12 BUN 29 H Creatinine 0.88 Est GFR ( Amer) > 60 Est GFR (Non-Af Amer) > 60 Glucose 91 Calcium 9.0 Impressions: Chest X-Ray 10/19/17 00:00 IMPRESSION: NO ACUTE RADIOGRAPHIC FINDING IN THE CHEST. Head CT 10/19/17 00:00 IMPRESSION: Stable CT appearance of the brain demonstrating multifocal encephalomalacia on the basis of chronic post ischemic injury. Background of microvascular ischemic changes. No evidence of acute intracranial hemorrhage or infarct. EVIDENCE OF ACUTE STROKE: NO. Brain MRI with MRA 10/20/17 00:00 IMPRESSION: Marked microvascular ischemia and old infarcts. Acute infarct as an extension of the old left parietal infarct. EVIDENCE OF ACUTE STROKE: Yes LEFT MCA Head MRI 10/20/17 00:00 IMPRESSION: Marked microvascular ischemia and old infarcts. Acute infarct as an extension of the old left parietal infarct. EVIDENCE OF ACUTE STROKE: Yes LEFT MCA Carotid Doppler Study 10/24/17 00:00 IMPRESSION: No flow significant internal carotid artery stenosis at the carotid bifurcations by velocity criteria. Assessment & Plan - Diagnosis (1) CVA (cerebral vascular accident) Qualifiers: CVA mechanism: unspecified Qualified Code(s): I63.9 - Cerebral infarction, unspecified Is this a current diagnosis for this admission?: Yes Plan: Patient has a PMH of CVA 6 years ago; patient was admitted following new onset seizure-like activity and worsening right side deficits. Head CT negative for hemorrhagic stroke. MRI/MRA shows acute infarct as an extension of the old left parietal infarct. Echocardiogram benign; normal ejection fraction and without evidence of cardiac source of embolus. Carotid Dopplers are negative for hemodynamically significant stenosis. Hemoglobin A1c is 5.6%. Lipid panel shows elevated LDL but otherwise appropriate. No abnormal rhythms were observed while on telemetry. The patient was originally admitted to [facility] on continuous cardiac telemetry; now downgraded to medical floor. Continue aspirin and statin therapy. PT/OT/ST evaluations. Recommendations are for halfway at discharge with total feet of pured diet at each meal. I do not feel that the patient is appropriate for acute rehabilitation at this time. We will begin weaning Keppra to see if the patient becomes more alert. Family have advised that they are not interested in pursuing PEG. Paliative Care is consulted. Awaiting insurance prior authorization for acute rehabilitation; stable for discharge once bed placement has been arranged. (2) Dementia Qualifiers: Dementia type: unspecified type Is this a current diagnosis for this admission?: Yes Plan: History of dementia; now complicated by worsening right-sided deficits secondary to CVA. Continue home dose Namenda and Aricept. Patient previously a resident of [facility]; discharge plan is unclear at present. The patient likely will benefit from SNF placement with hospice follow -up. Supportive care; provide for patient safety. (3) Hypothyroidism (acquired) Is this a current diagnosis for this admission?: Yes Plan: Last TSH from February 2017 is appropriate. Continue home dose of levothyroxine. (4) New onset seizure Is this a current diagnosis for this admission?: Yes Plan: The patient had seizure-like activity while out to lunch with her son prompting evaluation in the emergency department. She had a witnessed seizure in the emergency department shortly upon arrival. Found to have a right-sided acute CVA. She was placed on IV Keppra and transitioned to oral Keppra for prophylaxis. The patient's son, Иван, and I discussed her continued somnolence, poor participation in physical therapy, and poor appetite today. This could potentially be related to the Keppra started at the time of her CVA versus her new baseline mental status. The patient's son understands the risk of discontinuing this medication (potential for repeat seizure) but does request that we begin weaning the medication to see if the patient becomes more alert. Will begin weaning Keppra. (5) Urinary tract infection Qualifiers: Urinary tract infection type: acute cystitis Hematuria presence: with hematuria Qualified Code(s): N30.01 - Acute cystitis with hematuria Is this a current diagnosis for this admission?: Yes Plan: Same day ED visit for generalized weakness/fall with urinalysis positive for nitrites. Urine culture with ESBL E. coli. She is placed on oral Bactrim; Currently on day #9 of 10. (6) At risk for malnutrition Is this a current diagnosis for this admission?: Yes Plan: The patient is an elderly female with advanced dementia; admitted with low BMI of 21.9. Now with CVA resulting in right-sided neglect and inability to feed herself; requires total feeding assistance. Albumin 3.3. Registered dietitian has been consulted with implementation of their recommendations with the exception of Prieto. Enlive twice daily with Magic cup at dinner. Continue multivitamin. Assistance for meals. - Time Time Spent with patient: 35 or more minutes Medications reviewed and adjusted accordingly: Yes Anticipated discharge: SNF Within: when bed available
[2017-10-28] MEDS: ATORVASTATIN CALCIUM 80 MG TABLET PO SCH (21:19)
[2017-10-28] MEDS: MIRTAZAPINE 15 MG TABLET PO SCH (21:19)
[2017-10-28] MEDS: DONEPEZIL HCL 5 MG TABLET PO SCH (21:19)
[2017-10-29] MEDS: LEVOTHYROXINE SODIUM 0.05 MG TABLET PO SCH (05:08)
--- NOTE | 2017-10-29 09:15 | EEG PRO FEE REPORT ---
EEG INTERPRETATION PATIENT NAME: BABS ONTIVEROS ROOM#: [id number] ORDER#: [id number] DATE OF STUDY: 10/22/2017 : 1930 REFERRING MD: TOMMY KAY NP MEDICATIONS Aspirin, Lipitor, Bupropion, Vitamin D, Donepezil, Lovenox, Levetiracetam, hydralazine HCL, Synthroid, Memantine, Remeron, Protonix History This is an 87 year old woman with a history of Alzheimer's dementia, COPD, thyroid disease, and new stroke. This EEG was requested for seizure like activity. EEG Interpretation This EEG was recorded in the sleep state only. The awake EEG is characterized by a poorly organized background with a poorly visualized posterior dominant rhythm up to 8 Hz that was asymmetric, right greater than left, and was poorly reactive to passive eye opening and closing. There was a subtle attenuation of wave forms over the right hemisphere compared to the left. There was intermittent delta activity, maximal frontally, consistent with FIRDA. Photic stimulation was characterized by a fairly good driving response that was asymmetric, present on the left side only. Poorly formed sleep spindles were briefly noted in the midline head region. The EKG strip showed an irregular rhythm with PVCs. There were no definite epileptiform abnormalities noted. There was artifact through much of the recording. EEG Classification 1) Diffuse background slowing 2) FIRDA (frontal intermittent rhythmic delta activity) 3) Poor organization 4) Asymmetry-attenuation over right 5) Asymmetry-photic stimulation on left side only EEG Impression This is an abnormal EEG. It is also a technically poor study. The EEG is consistent with diffuse cerebral dysfunction as well as a structural lesion on the right. The EKG showed an irregular rhythm with PVCs. Clinical correlation is recommended. INTERPRETING PHYSICIAN: NIDHI HART M.D. /: MTEFJOSE TT: [id number] ID: [id number] /: [id number] TD: [id number] JOB: [id number] cc:NIDHI HART M.D. E. . GROUP, TOMMY KAY NP > MTDD
[2017-10-29] MEDS: ENOXAPARIN SODIUM INJ 40 MG/0.4 ML DISP.SYRIN SUBCUT SCH (11:43)
[2017-10-29] MEDS: MEMANTINE HCL 10 MG TABLET PO SCH (11:45)
[2017-10-29] MEDS: SULFAMETHOXAZOLE/TRIMETHOPRIM 800-160 MG TABLET PO SCH (11:45)
[2017-10-29] MEDS: ASPIRIN 81 MG TABLET, CHEWABLE PO SCH ×2 (11:45→21:19)
[2017-10-29] MEDS: BUPROPION HCL 75 MG TABLET PO SCH ×2 (11:45→21:18)
[2017-10-29] MEDS: CHOLECALCIFEROL (D3) 1,000 UNIT TABLET PO SCH (11:45)
[2017-10-29] MEDS: LEVETIRACETAM ORAL SOLN 500 MG/5 ML UDCUP PO SCH (11:46)
[2017-10-29] MEDS: MULTIVITAMINS W-IRON TABLET, CHEWABLE PO SCH (11:46)
--- NOTE | 2017-10-29 19:25 | PDOC PROGRESS REPORT ---
Subjective Progress Note for:: 10/29/17 Subjective:: The patient is an 87 year old female with past medical history significant for advanced dementia, CVA with residual Rt side deficits, hyperlipidemia, hypothyroidism, COPD, and GERD who was admitted on 10/19/17 with seizure-like activity and worsening right-sided facial droop. The patient was seen onrounds; unfortunately, no family members are present. I did contact her son Иван by phone this afternoon. The patient is alert and oriented to self; pleasantly confused and conversational. She is just returned from ambulating in the hallway approximately 80 feet with physical therapy. Nursing reports that the patient has been awake for most of the day, taking her medications, and ate most of her meals. This is a significant improvement over the last several days. The patient denies discomfort; asking "why are you making a fuss about me?" Patient is stable for discharge to SNF/Acute Rehabilitation when bed is available. Recommend palliative services follow the patient after discharge. Reason For Visit: STROKE/TIA. NEW ONSET SEIZURE Physical Exam Vital Signs: Temp Pulse Resp BP Pulse Ox 98.2 F 70 17 120/48 L 98 10/29/17 15:06 10/29/17 15:06 10/29/17 15:06 10/29/17 15:06 10/29/17 15:06 Intake & Output 10/28/17 10/29/17 10/30/17 06:59 06:59 06:59 Intake Total 476 426 210 Balance 476 426 210 Weight 54.2 kg 53.1 kg General appearance: PRESENT: no acute distress, cooperative, hard of hearing, thin, well-developed, well-nourished Head exam: PRESENT: atraumatic, normocephalic Eye exam: PRESENT: conjunctiva pink, EOMI, PERRLA. ABSENT: scleral icterus Ear exam: PRESENT: normal external ear exam Mouth exam: PRESENT: moist, tongue midline Teeth exam: PRESENT: edentulous Neck exam: ABSENT: carotid bruit, JVD, lymphadenopathy, thyromegaly Respiratory exam: PRESENT: clear to auscultation oksana, symmetrical, unlabored. ABSENT: rales, rhonchi, wheezes Cardiovascular exam: PRESENT: RRR, +S1, +S2. ABSENT: diastolic murmur, rubs, systolic murmur Pulses: PRESENT: normal dorsalis pedis pul Vascular exam: PRESENT: normal capillary refill GI/Abdominal exam: PRESENT: normal bowel sounds, soft. ABSENT: distended, guarding, mass, organolmegaly, rebound, tenderness Rectal exam: PRESENT: deferred Extremities exam: PRESENT: full ROM. ABSENT: calf tenderness, clubbing, pedal edema Musculoskeletal exam: PRESENT: ambulatory Neurological exam: PRESENT: alert, awake, oriented to person, CN II-XII grossly intact, other - Pleasantly confused. ABSENT: oriented to place, oriented to time, oriented to situation, motor sensory deficit Psychiatric exam: PRESENT: appropriate affect, normal mood. ABSENT: homicidal ideation, suicidal ideation Skin exam: PRESENT: dry, intact, warm. ABSENT: cyanosis, rash Results Laboratory Results: 10/28/17 04:10 10/28/17 04:10 Impressions: Chest X-Ray 10/19/17 00:00 IMPRESSION: NO ACUTE RADIOGRAPHIC FINDING IN THE CHEST. Head CT 10/19/17 00:00 IMPRESSION: Stable CT appearance of the brain demonstrating multifocal encephalomalacia on the basis of chronic post ischemic injury. Background of microvascular ischemic changes. No evidence of acute intracranial hemorrhage or infarct. EVIDENCE OF ACUTE STROKE: NO. Brain MRI with MRA 10/20/17 00:00 IMPRESSION: Marked microvascular ischemia and old infarcts. Acute infarct as an extension of the old left parietal infarct. EVIDENCE OF ACUTE STROKE: Yes LEFT MCA Head MRI 10/20/17 00:00 IMPRESSION: Marked microvascular ischemia and old infarcts. Acute infarct as an extension of the old left parietal infarct. EVIDENCE OF ACUTE STROKE: Yes LEFT MCA Carotid Doppler Study 10/24/17 00:00 IMPRESSION: No flow significant internal carotid artery stenosis at the carotid bifurcations by velocity criteria. Assessment & Plan - Diagnosis (1) CVA (cerebral vascular accident) Qualifiers: CVA mechanism: unspecified Qualified Code(s): I63.9 - Cerebral infarction, unspecified Is this a current diagnosis for this admission?: Yes Plan: Patient has a PMH of CVA 6 years ago; patient was admitted following new onset seizure-like activity and worsening right side deficits. Head CT negative for hemorrhagic stroke. MRI/MRA shows acute infarct as an extension of the old left parietal infarct. Echocardiogram benign; normal ejection fraction and without evidence of cardiac source of embolus. Carotid Dopplers are negative for hemodynamically significant stenosis. Hemoglobin A1c is 5.6%. Lipid panel shows elevated LDL but otherwise appropriate. No abnormal rhythms were observed while on telemetry. The patient was originally admitted to [facility] on continuous cardiac telemetry; now downgraded to medical floor. Continue aspirin and statin therapy. PT/OT/ST evaluations. After repeat evaluation today, continue to recommend acute rehabilitation at discharge. Will require total assistance of pured diet at each meal. Keppra weaned yesterday (had not taken any the day before 2/2 somnolence); she is significantly more alert today and participated with all nursing activities and physical therapy. Family was updated on the improvement, cautioned against over optimism, but did express that the patient would qualify for acute rehabilitation if she remains to her current level. Family have advised that they are not interested in pursuing PEG. Paliative Care is consulted. Awaiting insurance prior authorization for acute rehabilitation; stable for discharge once bed placement has been arranged. (2) Dementia Qualifiers: Dementia type: unspecified type Is this a current diagnosis for this admission?: Yes Plan: History of dementia; now complicated by worsening right-sided deficits secondary to CVA. Continue home dose Namenda and Aricept. Patient previously a resident of [facility]; discharge plan is unclear at present. The patient likely will benefit from SNF placement with palliative care follow-up. Supportive care; provide for patient safety. (3) Hypothyroidism (acquired) Is this a current diagnosis for this admission?: Yes Plan: Last TSH from February 2017 is appropriate. Continue home dose of levothyroxine. (4) New onset seizure Is this a current diagnosis for this admission?: Yes Plan: The patient had seizure-like activity while out to lunch with her son prompting evaluation in the emergency department. She had a witnessed seizure in the emergency department shortly upon arrival. Found to have a right-sided acute CVA. She was placed on IV Keppra and transitioned to oral Keppra for prophylaxis. The patient's son, Иван, and I discussed her continued somnolence, poor participation in physical therapy, and poor appetiteyesterday. This could potentially be related to the Keppra started at the time of her CVA versus her new baseline mental status. The patient's son understands the risk of discontinuing this medication (potential for repeat seizure) but does request that we begin weaning the medication to see if the patient becomes more alert. Significant improvements in alertness today. Spoke with son; requests to continue weaning off medication. Discontinue Keppra. Seizure precautions. (5) Urinary tract infection Qualifiers: Urinary tract infection type: acute cystitis Hematuria presence: with hematuria Qualified Code(s): N30.01 - Acute cystitis with hematuria Is this a current diagnosis for this admission?: Yes Plan: Same day ED visit for generalized weakness/fall with urinalysis positive for nitrites. Urine culture with ESBL E. coli. She has completed a 10 day course of Bactrim. (6) At risk for malnutrition Is this a current diagnosis for this admission?: Yes Plan: The patient is an elderly female with advanced dementia; admitted with low BMI of 21.9. Now with CVA resulting in right-sided neglect and inability to feed herself; requires total feeding assistance. Albumin 3.3. Registered dietitian has been consulted with implementation of their recommendations with the exception of Megace. Pt is more alert; ideally will begin to eat more of her meals. May consider Megace to supplement appetite if patient is not placed in hospice. Enlive twice daily with Magic cup at dinner. Continue multivitamin. Assistance for meals. - Time Time Spent with patient: 15-24 minutes Medications reviewed and adjusted accordingly: Yes Anticipated discharge: Acute Rehab Within: when bed available
[2017-10-29] MEDS: ATORVASTATIN CALCIUM 80 MG TABLET PO SCH (21:18)
[2017-10-29] MEDS: DONEPEZIL HCL 5 MG TABLET PO SCH (21:18)
[2017-10-29] MEDS: MIRTAZAPINE 15 MG TABLET PO SCH (21:19)
[2017-10-30] MEDS: LEVOTHYROXINE SODIUM 0.05 MG TABLET PO SCH (05:09)
[2017-10-30] MEDS: BUPROPION HCL 75 MG TABLET PO SCH (11:12)
[2017-10-30] MEDS: ASPIRIN 81 MG TABLET, CHEWABLE PO SCH (11:12)
[2017-10-30] MEDS: CHOLECALCIFEROL (D3) 1,000 UNIT TABLET PO SCH (11:12)
[2017-10-30] MEDS: MEMANTINE HCL 10 MG TABLET PO SCH (11:12)
[2017-10-30] MEDS: MULTIVITAMINS W-IRON TABLET, CHEWABLE PO SCH (11:12)
[2017-10-30] MEDS: ENOXAPARIN SODIUM INJ 40 MG/0.4 ML DISP.SYRIN SUBCUT SCH (11:14)
--- NOTE | 2017-10-30 15:07 | PDOC TRANSFER SUMMARY ---
General - Admit/Disc Date/PCP Admission Date/Primary Care Provider: 10/19/17 19:33 MARIA DE JESUS LOJA PA-C Discharge Date: 10/30/17 - Discharge Diagnosis (1) CVA (cerebral vascular accident) Is this a current diagnosis for this admission?: Yes (2) Dementia Is this a current diagnosis for this admission?: Yes (3) Hypothyroidism (acquired) Is this a current diagnosis for this admission?: Yes (4) New onset seizure Is this a current diagnosis for this admission?: Yes (5) Urinary tract infection Is this a current diagnosis for this admission?: Yes (6) At risk for malnutrition Is this a current diagnosis for this admission?: Yes - Additional Information Resuscitation Status: Do Not Resuscitate Discharge Diet: As Tolerated Prescriptions: Atorvastatin Calcium [Lipitor] 80 mg PO QHS #30 tablet Clopidogrel Bisulfate [Plavix 75 mg Tablet] 75 mg PO DAILY #30 tablet Home Medications: Aspirin [Aspirin 81 mg Chewable Tablet] 81 mg PO Q12 02/01/13 Bupropion HCl [Wellbutrin 75 mg Tablet] 75 mg PO Q12 10/20/17 Cholecalciferol (Vitamin D3) [Vitamin D3 1000 Unit Tablet] 2,000 unit PO DAILY 10/20/17 Cyanocobalamin (Vitamin B-12) [Vitamin B-12] 1,000 mcg SL MOWEFR@1000 10/20/17 Donepezil HCl [Aricept] 10 mg PO QHS 10/20/17 Levothyroxine Sodium [Synthroid 0.05 mg Tablet] 0.05 mg PO Q6AM 10/20/17 Memantine HCl [Namenda] 5 mg PO DAILY 10/20/17 Mirtazapine [Remeron 15 mg Tablet] 15 mg PO QHS 10/20/17 Ondansetron [Zofran Odt 4 mg Tablet] 4 mg PO TIDP PRN 10/20/17 Polyethylene Glycol 3350 [Miralax Powder 17 gm/Packet] 17 gm PO DAILY 10/20/17 Acetaminophen [Tylenol 325 mg Tablet] 650 mg PO Q4HP PRN tablet 10/25/17 Multivitamins W-Iron [Flintstones Chewable Multivit W/Fe Tab] 2 tab PO DAILY tab.chew 10/25/17 Atorvastatin Calcium [Lipitor] 80 mg PO QHS #30 tablet 10/30/17 Bupropion HCl [Wellbutrin 75 mg Tablet] 75 mg PO Q12 tablet 10/30/17 Clopidogrel Bisulfate [Plavix 75 mg Tablet] 75 mg PO DAILY #30 tablet 10/30/17 History of Present Illness Admission Date/PCP: 10/19/17 19:33 MARIA DE JESUS LOJA PA-C History of Present Illness: Per H&P by Dr. Bennett: BABS ONTIVEROS is a 87 year old female from [facility] brought to the emergency department by EMS for right upper and lower extremity weakness and seizure-like activity. Since patient is nonverbal and underlying cognitive impairment, brief history is obtained from ER attending note and from her son who is in the room during my encounter. Patient was seen earlier in the day in the emergency department she was sent here from [facility] for possible falls and generalized body weakness. [facility]. Prior to going back to the [facility] her son who is her POA decided to take her out for lunch and he witnessed while she is having tonic-clonic like seizure. Even though patient has left facial droop after she had a stroke 6 years ago, it looks pronounced per her son. At her baseline patient ambulates without cane or walker. Detailed history and review of systems unobtainable. Hospital Course Hospital Course: Patient was admitted following new onset seizure-like activity prior to arrival with family members and again in the emergency department and worsening right side deficits found to have an acute CVA in the area of her previous infarction. Head CT negative for hemorrhagic stroke. MRI/MRA shows acute infarct as an extension of the old left parietal infarct. Echocardiogram benign; normal ejection fraction and without evidence of cardiac source of embolus. Carotid Dopplers are negative for hemodynamically significant stenosis. Hemoglobin A1c is 5.6%. Lipid panel shows elevated LDL but otherwise appropriate. No abnormal rhythms were observed while on telemetry. The patient was originally admitted to [facility] on continuous cardiac telemetry and subsequently downgraded to medical floor. She was placed on daily aspirin and statin therapy. She was initially provided IV maintenance fluids and IV Keppra for seizure prevention. She was also found to have a urinary tract infection. Urine culture demonstrated ESBL E. coli based upon sensitivities, the patient was treated with p.o. Bactrim for a 10 day course of therapy. The patient participated with PT/OT/ST services. Speech therapy recommended a pured diet with thin liquids and total assistance at each meal. Yesterday, the patient ambulated with minimal assistance and front wheel walker approximately 80 feet with physical therapy services. Their updated recommendations continue to advise for acute rehabilitation. The patient was transitioned to p.o. Keppra; she remained on AEDs for a total of 9 days. Due to significant fatigue/somnolence and decreased appetite, it was discussed with the family members the risk and benefits of weaning and discontinuing Keppra. The patient's son felt that side effects from medications were negatively affecting her quality of life and endorsed weaning medication. The patient was noted to have increased total alertness throughout the day, increased ability to participate with physical therapy, and increased p.o. intake following discontinuation of Keppra. She has had no further seizures since the inciting event. The patient does have a history of dementia and was a resident of the [facility] prior to admission. Her home dose Aricept and Namenda were continued. At baseline, the patient is alert and oriented to self only, does recognize family members, and is otherwise pleasantly confused. Prior to admission, the patient was independently ambulatory with a front wheel walker and capable of self feeds. The patient was evaluated for malnutrition as she is an elderly female with advanced dementia; admitted with low BMI of 21.9. Now with CVA resulting in right-sided neglect and inability to feed herself; requiring total feeding assistance. The registered Dietitian was consulted with implementation of their recommendations with the exception of Megace. Otherwise; patient was started on Enlive twice daily with Magic cup at dinner, multivitamin, and assistance at meals. Family have advised that they are not interested in pursuing PEG. Paliative Care was consulted; recommend continued follow up services as an outpatient. At time of discharge, the patient is in stable condition, maintaining oxygen saturations on room air, pain-free, and has consumed 25-75% of her meals today. She is fatigued today, but easily aroused and did ambulate with physical therapy this morning. She is provided prescriptions for Plavix 75 mg daily and Lipitor 80 mg daily. Otherwise, she is to resume her previous home medication regiment. Would recommend consideration of dosage decrease of Wellbutrin, Aricept, and Namenda in the near future. She is discharged to SNF for acute rehabilitation. Physical Exam Vital Signs: Temp Pulse Resp BP Pulse Ox 98.2 F 69 19 126/57 H 91 L 10/30/17 12:00 10/30/17 12:00 10/30/17 12:00 10/30/17 12:00 10/30/17 12:00 Intake & Output 10/29/17 10/30/17 10/31/17 06:59 06:59 06:59 Intake Total 426 495 237 Balance 426 495 237 Weight 53.1 kg 52.6 kg General appearance: PRESENT: no acute distress, cooperative, thin, well- developed Head exam: PRESENT: atraumatic, normocephalic Eye exam: PRESENT: conjunctiva pink, EOMI, PERRLA. ABSENT: scleral icterus Ear exam: PRESENT: normal external ear exam Mouth exam: PRESENT: moist, tongue midline, other - Slight left-sided facial droop Teeth exam: PRESENT: edentulous Neck exam: ABSENT: carotid bruit, JVD, lymphadenopathy, thyromegaly Respiratory exam: PRESENT: clear to auscultation oksana, symmetrical, unlabored. ABSENT: rales, rhonchi, wheezes Cardiovascular exam: PRESENT: RRR, +S1, +S2. ABSENT: diastolic murmur, rubs, systolic murmur Pulses: PRESENT: normal dorsalis pedis pul Vascular exam: PRESENT: normal capillary refill GI/Abdominal exam: PRESENT: normal bowel sounds, soft. ABSENT: distended, guarding, mass, organolmegaly, rebound, tenderness Rectal exam: PRESENT: deferred Extremities exam: PRESENT: other - Slightly reduced range of motion to right side secondary to CVA and subsequent inattention. ABSENT: calf tenderness, clubbing, pedal edema Musculoskeletal exam: PRESENT: ambulatory - With front wheeled walker and 1 person assist Neurological exam: PRESENT: other - Easily aroused; oriented to self at baseline. Follows one-step commands with prompting; right side facial droop with right extremity inattention (RUE > RLE). Psychiatric exam: PRESENT: appropriate affect, normal mood. ABSENT: homicidal ideation, suicidal ideation Skin exam: PRESENT: dry, intact, warm. ABSENT: cyanosis, rash Results Laboratory Results: 10/28/17 04:10 10/28/17 04:10 Impressions: Chest X-Ray 10/19/17 00:00 IMPRESSION: NO ACUTE RADIOGRAPHIC FINDING IN THE CHEST. Head CT 10/19/17 00:00 IMPRESSION: Stable CT appearance of the brain demonstrating multifocal encephalomalacia on the basis of chronic post ischemic injury. Background of microvascular ischemic changes. No evidence of acute intracranial hemorrhage or infarct. EVIDENCE OF ACUTE STROKE: NO. Brain MRI with MRA 10/20/17 00:00 IMPRESSION: Marked microvascular ischemia and old infarcts. Acute infarct as an extension of the old left parietal infarct. EVIDENCE OF ACUTE STROKE: Yes LEFT MCA Head MRI 10/20/17 00:00 IMPRESSION: Marked microvascular ischemia and old infarcts. Acute infarct as an extension of the old left parietal infarct. EVIDENCE OF ACUTE STROKE: Yes LEFT MCA Carotid Doppler Study 10/24/17 00:00 IMPRESSION: No flow significant internal carotid artery stenosis at the carotid bifurcations by velocity criteria. Transfer Plan - Disposition Transfer Plan: Discharge to SNF for acute rehabilitation. - Time Spent with Patient Time spent with patient: Less than 30 Minutes Qualifiers - * PATIENT BEING DISCHARGED WITH ANY OF THE FOLLOWING DIAGNOSIS: Stroke Stroke Pt being discharged on Anti-thrombolytic therapy?: Yes Stroke Pt being discharged on Anti-coagulation therapy?: No Reason(s) for not prescribing Anti-coagulation therapy:: Medical Contraindication Stroke Pt being discharged on Statins?: Yes Plan Discharge Plan: Discharge to SNF for acute rehabilitation; recommend Palliative Care services to follow as outpatient. Time Spent: Greater than 30 Minutes
[2017-10-30 16:50] VITALS: BP 100/55
== END 2017-10-30 17:45 | disposition short-term general hospital (02) | DRG 65 ==
LOC: ER 17:38 → EH 19:33 → OBSVTOIN 19:33 → 3N 22:59 → 5 10-25 20:38
PROVIDERS: ADMIT Internal Medicine; ATTEND Internal Medicine
DX: I63.412 Cerebral infarction due to embolism of left middle cerebral artery (principal); G81.91 Hemiplegia, unspecified affecting right dominant side; N30.01 Acute cystitis with hematuria; F03.90 Unspecified dementia, unspecified severity, without behavioral disturbance, psychotic disturbance, mood disturbance, and anxiety; E03.9 Hypothyroidism, unspecified; G40.409 Other generalized epilepsy and epileptic syndromes, not intractable, without status epilepticus; Z66 Do not resuscitate; B96.20 Unspecified Escherichia coli [E. coli] as the cause of diseases classified elsewhere; E78.00 Pure hypercholesterolemia, unspecified; J44.9 Chronic obstructive pulmonary disease, unspecified; K21.9 Gastro-esophageal reflux disease without esophagitis; R29.810 Facial weakness; I69.392 Facial weakness following cerebral infarction; Z68.21 Body mass index [BMI] 21.0-21.9, adult; Z88.0 Allergy status to penicillin; Z87.891 Personal history of nicotine dependence; Z79.899 Other long term (current) drug therapy; Z79.82 Long term (current) use of aspirin
CPT/HCPCS: 36415; 51701; 70450; 70544; 70551; 71045; 80048; 80053; 80061; 81001; 82550; 82962; 83036; 83735; 84100; 84484; 85025; 85027; 87086; 87088; 87186; 93005; 93010; 93306; 93880; 95819; 99285; G8978-GP; G8979-GP; G8987-GO; G8988-GO; G8996-GN; G8997-GN; G8998-GN; J0360; J1650; J1953; J3490; S0164